=== PATIENT | female | born 1955 | race Caucasian/White ===

== ENCOUNTER 2019-06-20 09:55 | Day surgery (SDC) | payer SELFPAY ==
[2019-06-20] VITALS (10 sets, daily range): BP systolic 113–163; BP diastolic 60–79
[~2019-06-20] VITALS: Ht 162.5 cm; Wt 93.0 kg
[2019-06-20] MEDS ORDERED: CATHETER FLUSH 10 ML SYR IV PRN (10:30)
--- OUTSIDE RECORDS SUMMARY | 2019-06-20 10:32 | XMS REPORT ---
Author Author Shanice HENRIQUEZ Organization [facility] Address [address] [place] [address] Care Team Providers Care Sports Recruiter Name Role Phone JONNATHAN HENRIQUEZ Unavailable PROBLEMS Type Condition ICD9-CM Code [id number] Code Onset Dates Condition S tatus SNOMED Code Problem Hypertension I10 Active 1216967 3 Problem Family history of diabetes mellitus Z83.3 Active 997398376 Problem History of frequent urinary tract infections Z87.4 40 Active 0613589424881 Problem Anxiety F41.9 Active 95160726 Problem Asthma J45.909 Active 619113088 Problem Urge incontinence N39.41 Active 87 886682 Problem Herpes simplex type II infection B00.9 Active 828025103 Problem Hepatitis C B19.20 Active 67419616 Problem Depression F32.9 Active 70031475 Problem Overactive bladder N32.81 Active 2 91799289 Problem Other urinary incontinence N39.498 Act bethany [id number] ALLERGIES No Information ENCOUNTERS Encounter Location Date Diagnosis [facility] [address] [id number] [address] [place] [id number] 16 May, 2018 Prediabetes R73.03 [facility] [id number] [address] [place] [phone] 10 May, 2018 Hypertension I10 ; Dysuria R 30.0 ; Seborrheic keratosis L82.1 ; Anxiety F41.9 and Urge incontinence N39.41 [facility] [address] [facility] [id number] [address] [place] [phone] 07 Jan, 2018 Acute sinusitis J01.90 [facility] [address] [facility] [id number] [address] [place] [phone] 17 Oct, 2017 [facility] [address] [id number] [address] [place] [phone] Sep, Acute non-recurrent maxillar y sinusitis J01.00 ; Hypertension I10 ; Depression F32.9 ; Asthma J45.909 and Lymphadenopathy R59.1 [place] [address] [facility] [id number] [address] [place] [phone] Feb, Dysuria R30.0 ; Urinary trac t infection without hematuria, site unspecified N39.0 ; Asthma J45.909 and Bronchitis J40 [place] [address] [facility] [id number] [address] [place] [phone] Sep, [place] [address] [id number] [place] [phone] Aug, Wheezing R06.2 ; Hoarse voic e quality R49.0 ; Cough R05 and Encounter for screening mammogram for breast cancer Z12.31 [facility] [address] [id number] [address] [place] [phone] Jul, Pharyngitis due to other org anism J02.8 [place] [address] [id number] [place] [phone] Apr, Sore throat J02.9 ; Bronchit is J40 ; Herpes simplex type II infection B00.9 and Eustachian tube dysfunction, bilateral H69.83 [place] [address] [address] [id number] [place] [phone] Feb, Acute non-recurrent maxillar y sinusitis J01.00 [place] [address] [id number] [place] [phone] Feb, Asthma J45.909 [place] [address] [place] [address] [id number] [place] [address] Jan, [place] [address] [address] Jan, Acute non-recurrent maxillar y sinusitis J01.00 ; Hypertension I10 and History of hepatitis C virus infection Z86.19 [place] [address] [place] [id number] [address] [place] [address] Jan, Hep C w/ coma, chronic B18.2 [place] [address] [address] Jan, [place] [address] [address] Oct, Osteoarthritis of both knees , unspecified osteoarthritis type M17.0 [place] [address] [address] Sep, Pain in right knee M25.561 ; Pain in left knee M25.562 ; Other chronic pain G89.29 ; Pain in thoracic spine M54.6 ; Acute gastritis without hemorrhage, unspecified gastritis type K29.00 ; Urinary tract infection, site not specified N39.0 and Hematuria, unspecified R31.[address] [address] Jul, Hypertension I10 ; Bronchiti s J40 ; Unspecified viral hepatitis C without hepatic coma B19.20 ; Asthma J45.909 and Hep C w/ coma, chronic B18.2 [place] [address] [address] June, [place] [address] [address] May, Bronchitis J40 ; Asthma J45. 909 and Unspecified viral hepatitis C without hepatic coma B19.20 [place] [address] [address] May, Unspecified viral hepatitis C without hepatic coma B19.20 [place] [address] [address] May, Hypertension I10 ; Hepatitis C B19.20 and Encounter for screening mammogram for breast cancer Z12.[address] [address] Apr, [facility] [address] [id number] [address] [place] [phone] Apr, Unspecified viral hepatitis C without hepatic coma B19.20 and Hep C w/ coma, chronic B18.2 [facility] [address] [id number] [address] [place] [phone] Mar, [facility] [address] [id number] [address] [place] [phone] Mar, Hypertension I10 and Unspeci fied viral hepatitis C without hepatic coma B19.20 [facility] [address] [id number] [address] [place] [phone] Feb, [facility] [address] [facility] [id number] [address] [place] [address] Feb, Hypertension I10 [facility] [address] [facility] [id number] [address] [place] [id number] Feb, Hypertension I10 ; Hepatitis C B19.20 and History of frequent urinary tract infections Z87.440 [facility] [address] [facility] [id number] [address] [place] [phone] Feb, Unspecified viral hepatitis C without hepatic coma B19.20 and Hep C w/ coma, chronic B18.2 [facility] [address] [id number] [address] [place] [phone] Feb, Hep C w/ coma, chronic B18.2 [facility] [address] [id number] [address] [place] [phone] Jan, [facility] [address] [id number] [address] [place] [phone] Jan, Unspecified viral hepatitis C without hepatic coma B19.20 and Hep C w/ coma, chronic B18.2 [facility] [address] [facility] [id number] [address] [place] [phone] Jan, [facility] [address] [facility] [id number] [address] [place] [phone] Jan, Sore throat J02.9 and Dysuri a R30.0 [facility] [address] [facility] [id number] [address] [place] [phone] 30 Nov, 2014 [facility] [address] [facility] [id number] [address] [place] [phone] Nov, [facility] [address] [facility] [id number] [address] [place] [phone] Nov, [facility] [address] [facility] [id number] [address] [place] [address] Nov, Hepatitis C 070.70 [facility] [address] [facility] [id number] [address] [place] [phone] Nov, [facility] [address] [facility] [id number] [address] [place] [phone] Oct, Hepatitis C 070.70 [facility] [address] [facility] [id number] [address] [place] [phone] 14 Oct, 2014 Upper respiratory infection 465.9 [facility] [id number] [place] [address] Jul, [facility] [address] [facility] [id number] [address] [place] [phone] June, Hepatitis C 070.70 [facility] [address] [facility] [id number] [address] [place] [phone] 14 May, 2014 [facility] [address] [facility] [id number] [address] [place] [phone] 13 May, 2014 [facility] [address] [facility] [id number] [address] [place] [phone] 16 Apr, 2014 [facility] [address] [facility] [id number] [address] [place] [phone] Apr, [facility] [address] [facility] [id number] [address] [place] [phone] Mar, [facility] [address] [facility] [id number] [address] [place] [phone] Mar, [facility] [address] [facility] [id number] [address] [place] [phone] Mar, [facility] [address] [facility] [id number] [address] [place] [phone] Feb, [facility] [address] [facility] [id number] [address] [place] [phone] Feb, [facility] [address] [facility] [id number] [address] [place] [phone] Feb, [facility] [address] [facility] [id number] [address] [place] [phone] Feb, IMMUNIZATIONS No Known Immunizations SOCIAL HISTORY Never Assessed REASON FOR VISIT PLAN OF CARE VITAL SIGNS Height 64 in 2014-04-09 Weight 223.31 lbs 2014-04-09 Temperature 98.2 degrees Fahrenheit 2014-04-09 Heart Rate 72 bpm 2014-04-09 Respiratory Rate 18 2014-04-09 Blood pressure systolic 132 mmHg 2014-04-09 Blood pressure diastolic 70 mmHg 2014-04-09 MEDICATIONS Unknown Medications RESULTS No Results PROCEDURES Procedure Date Ordered Result Body Site COMPLETE CBC W/AUTO DIFF WBC Apr 09, 2014 ASSAY THYROID STIM HORMONE Apr 09, 2014 GLYCATED HEMOGLOBIN TEST Apr 09, 2014 ACUTE HEPATITIS PANEL Apr 09, 2014 LIPID PANEL Apr 09, 2014 COMPREHEN METABOLIC PANEL Apr 09, 2014 VENIPUNCT, ROUTINE* Apr 09, 2014 INSTRUCTIONS MEDICATIONS ADMINISTERED No Known Medications MEDICAL (GENERAL) HISTORY Type Description Date Medical History Chronic Hep C Stage II Liver disease Genotype [address] Liver bx 2004 Relapsed after 18 mo of Interferon tx in May 2007 Repeat tx for 46 weeks completed August 2011.. Genotype 1a [facility] 05/2014 Medical History GERD Medical History Depression Medical History Asthma Medical History Rosacea Medical History Hypertension Surgical History cholecystectomy Surgical History section x 2 Surgical History partial hysterectomy Surgical History tonsillectomy and adenoidectomy Surgical History abcess in breast Surgical History carpal tunnel release in both wrists Hospitalization History surgeries
--- OUTSIDE RECORDS SUMMARY | 2019-06-20 10:32 | XMS REPORT ---
Author Author Shanice HENRIQUEZ Organization [facility] Address [address] [place] [address] Care Team Providers Care Dynamite Shooter Name Role Phone JONNATHAN HENRIQUEZ Unavailable PROBLEMS Type Condition ICD9-CM Code QXU07-OE Code Onset Dates Condition S tatus SNOMED Code Problem Hypertension I10 Active 7916265 3 Problem Family history of diabetes mellitus Z83.3 Active 693089747 Problem History of frequent urinary tract infections Z87.4 40 Active 7256881709362 Problem Anxiety F41.9 Active 49870301 Problem Asthma J45.909 Active 057211299 Problem Urge incontinence N39.41 Active 87 461532 Problem Herpes simplex type II infection B00.9 Active 267742848 Problem Hepatitis C B19.20 Active 72508114 Problem Depression F32.9 Active 37368566 Problem Overactive bladder N32.81 Active 2 06313237 Problem Other urinary incontinence N39.498 Act bethany [id number] ALLERGIES No Information ENCOUNTERS Encounter Location Date Diagnosis [facility] [id number] [place] [phone] 16 May, 2018 Prediabetes R73.03 [facility] [id number] [place] [phone] 10 May, 2018 Hypertension I10 ; Dysuria R 30.0 ; Seborrheic keratosis L82.1 ; Anxiety F41.9 and Urge incontinence N39.41 [facility] [address] [facility] [id number] [address] [place] [id number] 07 Jan, 2018 Acute sinusitis J01.90 [facility] [address] [facility] [id number] [address] [place] [phone] 17 Oct, 2017 [facility] [id number] [place] [address] Sep, Acute non-recurrent maxillar y sinusitis J01.00 ; Hypertension I10 ; Depression F32.9 ; Asthma J45.909 and Lymphadenopathy R59.1 [place] [address] [facility] [id number] [address] [place] [address] Feb, Dysuria R30.0 ; Urinary trac t infection without hematuria, site unspecified N39.0 ; Asthma J45.909 and Bronchitis J40 [place] [address] [facility] [id number] [address] [place] [address] Sep, [place] [address] [id number] [place] [address] Aug, Wheezing R06.2 ; Hoarse voic e quality R49.0 ; Cough R05 and Encounter for screening mammogram for breast cancer Z12.31 [facility] [id number] [place] [phone] Jul, Pharyngitis due to other org anism J02.8 [place] [address] [place] [id number] [place] [phone] Apr, Sore throat J02.9 ; Bronchit is J40 ; Herpes simplex type II infection B00.9 and Eustachian tube dysfunction, bilateral H69.83 [place] [address] [id number] [place] [address] Feb, Acute non-recurrent maxillar y sinusitis J01.00 [place] [address] [id number] [place] [address] Feb, Asthma J45.909 [place] [address] [place] [id number] [place] [address] Jan, [place] [address] [address] Jan, Acute non-recurrent maxillar y sinusitis J01.00 ; Hypertension I10 and History of hepatitis C virus infection Z86.19 [place] [address] [place] [id number] [place] [address] Jan, Hep C w/ coma, chronic B18.2 [place] [address] [address] Jan, [place] [address] [address] Oct, Osteoarthritis of both knees , unspecified osteoarthritis type M17.0 [place] [address] [address] Sep, Pain in right knee M25.561 ; Pain in left knee M25.562 ; Other chronic pain G89.29 ; Pain in thoracic spine M54.6 ; Acute gastritis without hemorrhage, unspecified gastritis type K29.00 ; Urinary tract infection, site not specified N39.0 and Hematuria, unspecified R31.[address] [address] Jul, Hypertension I10 ; Bronchiti s J40 ; Unspecified viral hepatitis C without hepatic coma B19.20 ; Asthma J45.909 and Hep C w/ coma, chronic B18.2 [place] [address] [address] June, [place] [address] [address] May, Bronchitis J40 ; Asthma J45. 909 and Unspecified viral hepatitis C without hepatic coma B19.20 [place] [address] [address] May, Unspecified viral hepatitis C without hepatic coma B19.20 [place] [address] [address] May, Hypertension I10 ; Hepatitis C B19.20 and Encounter for screening mammogram for breast cancer Z12.[address] [address] Apr, [facility] [address] [id number] [address] [place] [address] Apr, Unspecified viral hepatitis C without hepatic coma B19.20 and Hep C w/ coma, chronic B18.2 [facility] [address] [id number] [address] [place] [address] Mar, [facility] [address] [id number] [address] [place] [address] Mar, Hypertension I10 and Unspeci fied viral hepatitis C without hepatic coma B19.20 [facility] [address] [id number] [address] [place] [address] Feb, [facility] [address] [facility] [id number] [address] [place] [address] Feb, Hypertension I10 [facility] [address] [facility] [id number] [address] [place] [address] Feb, Hypertension I10 ; Hepatitis C B19.20 and History of frequent urinary tract infections Z87.440 [facility] [address] [facility] [id number] [address] [place] [address] Feb, Unspecified viral hepatitis C without hepatic coma B19.20 and Hep C w/ coma, chronic B18.2 [facility] [address] [id number] [address] [place] [address] Feb, Hep C w/ coma, chronic B18.2 [facility] [address] [id number] [address] [place] [phone] Jan, [facility] [address] [id number] [address] [place] [address] Jan, Unspecified viral hepatitis C without hepatic coma B19.20 and Hep C w/ coma, chronic B18.2 [facility] [address] [facility] [id number] [address] [place] [address] Jan, [facility] [address] [facility] [id number] [address] [place] [address] Jan, Sore throat J02.9 and Dysuri a R30.0 [facility] [address] [facility] [id number] [address] [place] [address] 30 Nov, 2014 [facility] [address] [facility] [id number] [address] [place] [phone] Nov, [facility] [address] [facility] [id number] [address] [place] [address] Nov, [facility] [address] [facility] [id number] [address] [place] [address] Nov, Hepatitis C 070.70 [facility] [address] [facility] [id number] [address] [place] [address] Nov, [facility] [address] [facility] [id number] [address] [place] [address] Oct, Hepatitis C 070.70 [facility] [address] [facility] [id number] [address] [place] [address] 14 Oct, 2014 Upper respiratory infection 465.9 [facility] [address] [id number] [place] [address] Jul, [facility] [address] [facility] [id number] [address] [place] [address] June, Hepatitis C 070.70 [facility] [address] [facility] [id number] [address] [place] [address] 14 May, 2014 [facility] [address] [facility] [id number] [address] [place] [address] 13 May, 2014 [facility] [address] [facility] [id number] [address] [place] [address] 16 Apr, 2014 [facility] [address] [facility] [id number] [address] [place] [address] Apr, [facility] [address] [facility] [id number] [address] [place] [address] Mar, [facility] [address] [facility] [id number] [address] [place] [phone] Mar, [facility] [address] [facility] [id number] [address] [place] [phone] Mar, [facility] [address] [facility] [id number] [address] [place] [phone] Feb, [facility] [address] [facility] [id number] [address] [place] [phone] Feb, [facility] [address] [facility] [id number] [address] [place] [phone] Feb, [facility] [address] [facility] [id number] [address] [place] [address] Feb, IMMUNIZATIONS No Known Immunizations SOCIAL HISTORY Never Assessed REASON FOR VISIT PLAN OF CARE VITAL SIGNS MEDICATIONS Unknown Medications RESULTS No Results PROCEDURES No Known procedures INSTRUCTIONS MEDICATIONS ADMINISTERED No Known Medications MEDICAL (GENERAL) HISTORY Type Description Date Medical History Chronic Hep C Stage II Liver disease Genotype [address] Liver bx 2004 Relapsed after 18 mo of Interferon tx in May 2007 Repeat tx for 46 weeks completed August 2011.. Genotype 1a [facility] 05/2014 Medical History GERD Medical History Depression Medical History Asthma Medical History Rosacea Medical History Hypertension Surgical History cholecystectomy Surgical History section x 2 Surgical History partial hysterectomy Surgical History tonsillectomy and adenoidectomy Surgical History abcess in breast Surgical History carpal tunnel release in both wrists Hospitalization History surgeries
--- OUTSIDE RECORDS SUMMARY | 2019-06-20 10:32 | XMS REPORT ---
Author Author Shanice BURRELL Organization [facility] Address [address] [place] [address] Care Team Providers Care Drill Press Set Up Operator Radial Name Role Phone JANIA BURRELL Unavailable PROBLEMS Type Condition ICD9-CM Code [id number] Code Onset Dates Condition S tatus SNOMED Code Problem Hypertension I10 Active 1421669 3 Problem Family history of diabetes mellitus Z83.3 Active 164334854 Problem History of frequent urinary tract infections Z87.4 40 Active 2180392578055 Problem Anxiety F41.9 Active 06899161 Problem Asthma J45.909 Active 972529580 Problem Urge incontinence N39.41 Active 87 672186 Problem Herpes simplex type II infection B00.9 Active 154139771 Problem Hepatitis C B19.20 Active 30680426 Problem Depression F32.9 Active 38785746 Problem Overactive bladder N32.81 Active 2 99085642 Problem Other urinary incontinence N39.498 Act bethany [id number] ALLERGIES No Information ENCOUNTERS Encounter Location Date Diagnosis [facility] [address] [facility] [id number] [address] [place] [id number] 16 May, 2018 Prediabetes R73.03 [facility] [address] [facility] [id number] [address] [place] [phone] May, Hypertension I10 ; Dysuria R 30.0 ; Seborrheic keratosis L82.1 ; Anxiety F41.9 and Urge incontinence N39.41 [facility] [address] [facility] [id number] [address] [place] [id number] Jan, Acute sinusitis J01.90 [facility] [address] [facility] [id number] [address] [place] [phone] Oct, [facility] [address] [facility] [id number] [address] [place] [id number] Sep, Acute non-recurrent maxillar y sinusitis J01.00 ; Hypertension I10 ; Depression F32.9 ; Asthma J45.909 and Lymphadenopathy R59.1 [place] [address] [place] [phone] Feb, Dysuria R30.0 ; Urinary trac t infection without hematuria, site unspecified N39.0 ; Asthma J45.909 and Bronchitis J40 [place] [address] [address] Sep, [place] [address] [address] Aug, Wheezing R06.2 ; Hoarse voic e quality R49.0 ; Cough R05 and Encounter for screening mammogram for breast cancer Z12.31 [facility] [address] [place] [id number] [address] [place] [id number] Jul, Pharyngitis due to other org anism J02.8 [place] [address] [place] [id number] [address] [place] [phone] Apr, Sore throat J02.9 ; Bronchit is J40 ; Herpes simplex type II infection B00.9 and Eustachian tube dysfunction, bilateral H69.83 [place] [address] [address] Feb, Acute non-recurrent maxillar y sinusitis J01.00 [place] [address] [place] [address] Feb, Asthma J45.909 [place] [address] [address] Jan, [place] [address] [address] Jan, Acute non-recurrent maxillar y sinusitis J01.00 ; Hypertension I10 and History of hepatitis C virus infection Z86.19 [place] [address] [address] Jan, Hep C w/ coma, chronic B18.2 [place] [address] [address] Jan, [place] [address] [address] Oct, Osteoarthritis of both knees , unspecified osteoarthritis type M17.0 [place] [address] [address] Sep, Pain in right knee M25.561 ; Pain in left knee M25.562 ; Other chronic pain G89.29 ; Pain in thoracic spine M54.6 ; Acute gastritis without hemorrhage, unspecified gastritis type K29.00 ; Urinary tract infection, site not specified N39.0 and Hematuria, unspecified R31.[address] [address] Jul, Hypertension I10 ; Bronchiti s J40 ; Unspecified viral hepatitis C without hepatic coma B19.20 ; Asthma J45.909 and Hep C w/ coma, chronic B18.[address] [address] June, [address] [address] May, Bronchitis J40 ; Asthma J45. 909 and Unspecified viral hepatitis C without hepatic coma B19.20 [place] [address] [address] May, Unspecified viral hepatitis C without hepatic coma B19.[address] [address] May, Hypertension I10 ; Hepatitis C B19.20 and Encounter for screening mammogram for breast cancer Z12.[address] [address] Apr, [facility] [address] [id number] [address] [place] [id number] Apr, Unspecified viral hepatitis C without hepatic coma B19.20 and Hep C w/ coma, chronic B18.2 [facility] [address] [id number] [address] [place] [id number] Mar, [facility] [address] [id number] [address] [place] [phone] Mar, Hypertension I10 and Unspeci fied viral hepatitis C without hepatic coma B19.20 [facility] [address] [id number] [address] [place] [phone] Feb, [facility] [address] [id number] [address] [place] [id number] Feb, Hypertension I10 [facility] [address] [facility] [id number] [address] [place] [id number] Feb, Hypertension I10 ; Hepatitis C B19.20 and History of frequent urinary tract infections Z87.440 [facility] [address] [id number] [address] [place] [id number] Feb, Unspecified viral hepatitis C without hepatic coma B19.20 and Hep C w/ coma, chronic B18.2 [facility] [address] [facility] [id number] [address] [place] [phone] Feb, Hep C w/ coma, chronic B18.2 [facility] [address] [id number] [address] [place] [phone] Jan, [facility] [address] [id number] [address] [place] [phone] Jan, Unspecified viral hepatitis C without hepatic coma B19.20 and Hep C w/ coma, chronic B18.2 [facility] [address] [id number] [address] [place] [phone] Jan, [facility] [address] [facility] [id number] [address] [place] [id number] Jan, Sore throat J02.9 and Dysuri a R30.0 [facility] [address] [facility] [id number] [address] [place] [phone] Nov, [facility] [address] [facility] [id number] [address] [place] [id number] Nov, [facility] [address] [place] [id number] [address] [place] [phone] Nov, [facility] [address] [facility] [id number] [address] [place] [id number] Nov, Hepatitis C 070.70 [facility] [address] [facility] [id number] [address] [place] [id number] Nov, [facility] [address] [place] [id number] [address] [place] [id number] Oct, Hepatitis C 070.70 [facility] [address] [facility] [id number] [address] [place] [phone] Oct, Upper respiratory infection 465.9 [facility] [address] [place] [id number] [address] [place] [id number] Jul, [facility] [address] [place] [id number] [address] [place] [phone] June, Hepatitis C 070.70 [facility] [address] [facility] [id number] [address] [place] [phone] May, [facility] [address] [facility] [id number] [address] [place] [phone] May, [facility] [address] [place] [id number] [address] [place] [phone] Apr, [facility] [address] [facility] [id number] [address] [place] [phone] Apr, [facility] [address] [place] [id number] [address] [place] [phone] Mar, [facility] [address] [facility] [id number] [address] [place] [phone] Mar, [facility] [address] [facility] [id number] [address] [place] [phone] Mar, [facility] [address] [facility] [id number] [address] [place] [phone] Feb, [facility] [address] [facility] [id number] [address] [place] [phone] Feb, [facility] [address] [facility] [id number] [address] [place] [id number] Feb, [facility] [address] [facility] [id number] [address] [place] [phone] Feb, IMMUNIZATIONS No Known Immunizations SOCIAL HISTORY [...] 46 weeks completed August 2011.. Genotype 1a [place] [facility] 05/2014 Medical History GERD Medical History Depression Medical History Asthma Medical History Rosacea Medical History Hypertension Surgical History cholecystectomy Surgical History section x 2 Surgical History partial hysterectomy Surgical History tonsillectomy and adenoidectomy Surgical History abcess in breast Surgical History carpal tunnel release in both wrists Hospitalization History surgeries
--- OUTSIDE RECORDS SUMMARY | 2019-06-20 10:32 | XMS REPORT ---
Author Author Shanice HENRIQUEZ Organization [facility] Address [address] [place] [address] Care Team Providers Care Aircraft Servicer Name Role Phone JONNATHAN HENRIQUEZ Unavailable PROBLEMS Type Condition ICD9-CM Code QXQ90-NT Code Onset Dates Condition S tatus SNOMED Code Problem Hypertension I10 Active 2698478 3 Problem Family history of diabetes mellitus Z83.3 Active 913242284 Problem History of frequent urinary tract infections Z87.4 40 Active 7662137000636 Problem Anxiety F41.9 Active 61233118 Problem Asthma J45.909 Active 054195153 Problem Urge incontinence N39.41 Active 87 568589 Problem Herpes simplex type II infection B00.9 Active 961186631 Problem Hepatitis C B19.20 Active 48198563 Problem Depression F32.9 Active 09451139 Problem Overactive bladder N32.81 Active 2 88370074 Problem Other urinary incontinence N39.498 Act bethany [id number] ALLERGIES No Information ENCOUNTERS Encounter Location Date Diagnosis [facility] [address] [place] [id number] [address] [place] [id number] 16 May, 2018 Prediabetes R73.03 [facility] [address] [place] [id number] [address] [place] [phone] 10 May, 2018 Hypertension I10 ; Dysuria R 30.0 ; Seborrheic keratosis L82.1 ; Anxiety F41.9 and Urge incontinence N39.41 [facility] [address] [facility] [id number] [address] [place] [id number] 07 Jan, 2018 Acute sinusitis J01.90 [facility] [address] [facility] [id number] [address] [place] [id number] 17 Oct, 2017 [facility] [address] [place] [id number] [address] [place] [id number] Sep, Acute non-recurrent maxillar y sinusitis J01.00 ; Hypertension I10 ; Depression F32.9 ; Asthma J45.909 and Lymphadenopathy R59.1 [place] [address] [facility] [id number] [address] [place] [phone] Feb, Dysuria R30.0 ; Urinary trac t infection without hematuria, site unspecified N39.0 ; Asthma J45.909 and Bronchitis J40 [place] [address] [facility] [id number] [address] [place] [phone] Sep, [place] [address] [place] [id number] [place] [id number] Aug, Wheezing R06.2 ; Hoarse voic e quality R49.0 ; Cough R05 and Encounter for screening mammogram for breast cancer Z12.31 [facility] [address] [place] [id number] [address] [place] [id number] Jul, Pharyngitis due to other org anism J02.8 [place] [address] [place] [id number] [address] [place] [id number] Apr, Sore throat J02.9 ; Bronchit is J40 ; Herpes simplex type II infection B00.9 and Eustachian tube dysfunction, bilateral H69.83 [place] [address] [place] [id number] [address] [place] [id number] Feb, Acute non-recurrent maxillar y sinusitis J01.00 [place] [address] [place] [id number] [address] [place] [phone] Feb, Asthma J45.909 [place] [address] [place] [id number] [address] [place] [id number] Jan, [place] [address] [address] Jan, Acute non-recurrent maxillar y sinusitis J01.00 ; Hypertension I10 and History of hepatitis C virus infection Z86.19 [place] [address] [place] [id number] [address] [place] [phone] Jan, Hep C w/ coma, chronic B18.2 [place] [address] [address] Jan, [place] [address] [address] Oct, Osteoarthritis of both knees , unspecified osteoarthritis type M17.0 [place] [address] [address] Sep, Pain in right knee M25.561 ; Pain in left knee M25.562 ; Other chronic pain G89.29 ; Pain in thoracic spine M54.6 ; Acute gastritis without hemorrhage, unspecified gastritis type K29.00 ; Urinary tract infection, site not specified N39.0 and Hematuria, unspecified R31.[address] [address] Jul, Hypertension I10 ; Bronchiti s J40 ; Unspecified viral hepatitis C without hepatic coma B19.20 ; Asthma J45.909 and Hep C w/ coma, chronic B18.2 [place] [address] [address] June, [place] [address] [address] May, Bronchitis J40 ; Asthma J45. 909 and Unspecified viral hepatitis C without hepatic coma B19.20 [place] [address] [address] May, Unspecified viral hepatitis C without hepatic coma B19.20 [place] [address] [address] May, Hypertension I10 ; Hepatitis C B19.20 and Encounter for screening mammogram for breast cancer Z12.[address] [address] Apr, [facility] [address] [id number] [address] [place] [id number] Apr, Unspecified viral hepatitis C without hepatic coma B19.20 and Hep C w/ coma, chronic B18.2 [facility] [address] [id number] [address] [place] [phone] Mar, [facility] [address] [id number] [address] [place] [id number] Mar, Hypertension I10 and Unspeci fied viral hepatitis C without hepatic coma B19.20 [facility] [address] [id number] [address] [place] [id number] Feb, [facility] [address] [facility] [id number] [address] [place] [phone] Feb, Hypertension I10 [facility] [address] [facility] [id number] [address] [place] [id number] Feb, Hypertension I10 ; Hepatitis C B19.20 and History of frequent urinary tract infections Z87.440 [facility] [address] [facility] [id number] [address] [place] [phone] Feb, Unspecified viral hepatitis C without hepatic coma B19.20 and Hep C w/ coma, chronic B18.2 [facility] [address] [id number] [address] [place] [id number] Feb, Hep C w/ coma, chronic B18.2 [facility] [address] [id number] [address] [place] [id number] Jan, [facility] [address] [id number] [address] [place] [id number] Jan, Unspecified viral hepatitis C without hepatic coma B19.20 and Hep C w/ coma, chronic B18.2 [facility] [address] [facility] [id number] [address] [place] [id number] Jan, [facility] [address] [facility] [id number] [address] [place] [id number] Jan, Sore throat J02.9 and Dysuri a R30.0 [facility] [address] [facility] [id number] [address] [place] [phone] 30 Nov, 2014 [facility] [address] [facility] [id number] [address] [place] [phone] Nov, [facility] [address] [facility] [id number] [address] [place] [phone] Nov, [facility] [address] [facility] [id number] [address] [place] [id number] Nov, Hepatitis C 070.70 [facility] [address] [facility] [id number] [address] [place] [id number] Nov, [facility] [address] [facility] [id number] [address] [place] [phone] Oct, Hepatitis C 070.70 [facility] [address] [facility] [id number] [address] [place] [phone] 14 Oct, 2014 Upper respiratory infection 465.9 [facility] [address] [place] [id number] [place] [phone] Jul, [facility] [address] [facility] [id number] [address] [place] [id number] June, Hepatitis C 070.70 [facility] [address] [facility] [id number] [address] [place] [id number] 14 May, 2014 [facility] [address] [facility] [id number] [address] [place] [id number] 13 May, 2014 [facility] [address] [facility] [id number] [address] [place] [id number] 16 Apr, 2014 [facility] [address] [facility] [id number] [address] [place] [phone] Apr, [facility] [address] [facility] [id number] [address] [place] [phone] Mar, [facility] [address] [facility] [id number] [address] [place] [phone] Mar, [facility] [address] [facility] [id number] [address] [place] [phone] Mar, [facility] [address] [facility] [id number] [address] [place] [phone] Feb, [facility] [address] [facility] [id number] [address] [place] [id number] Feb, [facility] [address] [facility] [id number] [address] [place] [phone] Feb, [facility] [address] [facility] [id number] [address] [place] [phone] Feb, IMMUNIZATIONS No Known Immunizations SOCIAL HISTORY Never Assessed REASON FOR VISIT PLAN OF CARE VITAL SIGNS Height 64 in 2014-03-13 Weight 222 lbs 2014-03-13 Temperature 97.7 degrees Fahrenheit 2014-03-13 Heart Rate 60 bpm 2014-03-13 Respiratory Rate 18 2014-03-13 Blood pressure systolic 132 mmHg 2014-03-13 Blood pressure diastolic 92 mmHg 2014-03-13 MEDICATIONS Unknown Medications RESULTS No Results PROCEDURES Procedure Date Ordered Result Body Site PSYCH DIAGNOSTIC EVALUATION Mar 13, 2014 INSTRUCTIONS MEDICATIONS ADMINISTERED No Known Medications MEDICAL (GENERAL) HISTORY Type Description Date Medical History Chronic Hep C Stage II Liver disease Genotype [address] Liver bx 2004 Relapsed after 18 mo of Interferon tx in May 2007 Repeat tx for 46 weeks completed August 2011.. Genotype 1a [place] [facility] 05/2014 Medical History GERD Medical History Depression Medical History Asthma Medical History Rosacea Medical History Hypertension Surgical History cholecystectomy Surgical History section x 2 Surgical History partial hysterectomy Surgical History tonsillectomy and adenoidectomy Surgical History abcess in breast Surgical History carpal tunnel release in both wrists Hospitalization History surgeries
--- OUTSIDE RECORDS SUMMARY | 2019-06-20 10:33 | XMS REPORT ---
Author Author Shanice HENRIQUEZ [facility] Address [address] [place] [address] Care Team Providers Care Television Repairman Name Role Phone JONNATHAN HENRIQUEZ Unavailable PROBLEMS Type Condition ICD9-CM Code XCJ71-CL Code Onset Dates Condition S tatus SNOMED Code Problem History of frequent urinary tract infections Z87.4 40 Active 9349912609229 Problem Herpes simplex type II infection B00.9 Active 346107269 Problem Depression F32.9 Active 40752441 Problem Family history of diabetes mellitus Z83.3 Active 162736454 Problem Hypertension I10 Active 7213946 3 Problem Hepatitis C B19.20 Active 58581721 Problem Asthma J45.909 Active 875084793 Problem Overactive bladder N32.81 Active 2 62016464 ALLERGIES Unknown Allergies SOCIAL HISTORY No smoking Hx information available PLAN OF CARE VITAL SIGNS MEDICATIONS Medication Instructions Dosage Frequency Start Date End Date Duration S tatus Symbicort 80-4.5 MCG/ACT Inhalation Twice a day 2 puffs 12h 30 days Active RESULTS No Results PROCEDURES No Known procedures IMMUNIZATIONS No Known Immunizations
--- OUTSIDE RECORDS SUMMARY | 2019-06-20 10:33 | XMS REPORT ---
Author Author Shanice HENRIQUEZ Organization [facility] Address [address] [place] [address] Care Team Providers Care Bicycle Rental Clerk Name Role Phone JONNATHAN HENRIQUEZ Unavailable PROBLEMS Type Condition ICD9-CM Code [id number] Code Onset Dates Condition S tatus SNOMED Code Problem History of frequent urinary tract infections Z87.4 40 Active 5701275242232 Problem Herpes simplex type II infection B00.9 Active 674825420 Problem Overactive bladder N32.81 Active 2 51855552 Problem Family history of diabetes mellitus Z83.3 Active 767415014 Problem Depression F32.9 Active 18477259 Problem Hepatitis C B19.20 Active 06994551 Problem Hypertension I10 Active 0633872 3 Problem Asthma J45.909 Active 436887007 ALLERGIES No Information ENCOUNTERS Encounter Location Date Diagnosis [place] [address] [place] [id number] [address] [place] [address] Oct, [place] [id number] [address] [place] [address] Sep, Acute non-recurrent maxillar y sinusitis J01.00 ; Hypertension I10 ; Depression F32.9 ; Asthma J45.909 and Lymphadenopathy R59.1 [place] [id number] [address] [place] [phone] Feb, Dysuria R30.0 ; Urinary trac t infection without hematuria, site unspecified N39.0 ; Asthma J45.909 and Bronchitis J40 [place] [address] [place] [id number] [address] [place] [phone] Sep, [place] [address] [place] [id number] [address] [place] [address] Aug, Wheezing R06.2 ; Hoarse voic e quality R49.0 ; Cough R05 and Encounter for screening mammogram for breast cancer Z12.31 [facility] [address] [address] Jul, Pharyngitis due to other org anism J02.8 [facility] [address] [address] Apr, Sore throat J02.9 ; Bronchit is J40 ; Herpes simplex type II infection B00.9 and Eustachian tube dysfunction, bilateral H69.83 [place] [address] [address] Feb, Acute non-recurrent maxillar y sinusitis J01.00 [place] [address] [address] 10 Feb, 2016 Asthma J45.909 [place] [address] [address] Jan, [place] [address] [address] Jan, Acute non-recurrent maxillar y sinusitis J01.00 ; Hypertension I10 and History of hepatitis C virus infection Z86.19 [place] [address] [address] Jan, Hep C w/ coma, chronic B18.2 [place] [address] [address] Jan, [place] [address] [address] Oct, Osteoarthritis of both knees , unspecified osteoarthritis type M17.0 [facility] [address] [place] [id number] [place] [address] Sep, Pain in right knee M25.561 ; Pain in left knee M25.562 ; Other chronic pain G89.29 ; Pain in thoracic spine M54.6 ; Acute gastritis without hemorrhage, unspecified gastritis type K29.00 ; Urinary tract infection, site not specified N39.0 and Hematuria, unspecified R31.9 [place] [address] [place] [id number] [place] [address] Jul, Hypertension I10 ; Bronchiti s J40 ; Unspecified viral hepatitis C without hepatic coma B19.20 ; Asthma J45.909 and Hep C w/ coma, chronic B18.2 [place] [address] [facility] [id number] [address] [place] [address] June, [place] [address] [facility] [id number] [address] [place] [address] May, Bronchitis J40 ; Asthma J45. 909 and Unspecified viral hepatitis C without hepatic coma B19.20 [place] [address] [place] [id number] [address] [place] [address] May, Unspecified viral hepatitis C without hepatic coma B19.20 [place] [address] [place] [id number] [address] [place] [address] May, Hypertension I10 ; Hepatitis C B19.20 and Encounter for screening mammogram for breast cancer Z12.31 [place] [address] [place] [id number] [address] [place] [address] Apr, [place] [address] [place] [id number] [address] [place] [address] Apr, Unspecified viral hepatitis C without hepatic coma B19.20 and Hep C w/ coma, chronic B18.2 [place] [address] [facility] [id number] [address] [place] [address] Mar, [place] [address] [place] [id number] [address] [place] [address] Mar, Hypertension I10 and Unspeci fied viral hepatitis C without hepatic coma B19.20 [place] [address] [facility] [id number] [address] [place] [address] Feb, [place] [address] [facility] [id number] [address] [place] [address] Feb, Hypertension I10 [facility] [address] [facility] [id number] [address] [place] [address] Feb, Hypertension I10 ; Hepatitis C B19.20 and History of frequent urinary tract infections Z87.440 [facility] [address] [facility] [id number] [address] [place] [address] Feb, Unspecified viral hepatitis C without hepatic coma B19.20 and Hep C w/ coma, chronic B18.2 [facility] [address] [facility] [id number] [address] [place] [address] Feb, Hep C w/ coma, chronic B18.2 [facility] [address] [facility] [id number] [address] [place] [address] Jan, [facility] [address] [place] [id number] [address] [place] [address] Jan, Unspecified viral hepatitis C without hepatic coma B19.20 and Hep C w/ coma, chronic B18.2 [facility] [address] [facility] [id number] [address] [place] [address] Jan, [facility] [address] [place] [id number] [address] [place] [address] Jan, Sore throat J02.9 and Dysuri a R30.0 [facility] [address] [facility] [id number] [address] [place] [address] Nov, [facility] [address] [facility] [id number] [address] [place] [address] Nov, [facility] [address] [place] [id number] [address] [place] [address] Nov, [facility] [address] [facility] [id number] [address] [place] [address] 08 Nov, 2014 Hepatitis C 070.70 [facility] [address] [place] [id number] [address] [place] [phone] Nov, [facility] [address] [id number] [address] [place] [phone] 16 Oct, 2014 Hepatitis C 070.70 [facility] [address] [id number] [address] [place] [id number] 14 Oct, 2014 Upper respiratory infection 465.9 [facility] [address] [id number] [address] [place] [address] Jul, [facility] [address] [id number] [address] [place] [phone] June, Hepatitis C 070.70 [facility] [address] [id number] [address] [place] [phone] May, [facility] [address] [id number] [address] [place] [phone] May, [facility] [address] [id number] [address] [place] [address] Apr, [facility] [address] [id number] [address] [place] [phone] Apr, [facility] [address] [id number] [address] [place] [address] Mar, [facility] [address] [id number] [address] [place] [address] Mar, [facility] [address] [id number] [address] [place] [phone] Mar, [facility] [address] [id number] [address] [place] [phone] Feb, [facility] [address] [id number] [address] [place] [address] Feb, [facility] [address] [id number] [address] [place] [phone] Feb, [facility] [address] [id number] [address] [place] [address], [place] [address] Feb, IMMUNIZATIONS No Known Immunizations SOCIAL HISTORY Never Assessed REASON FOR VISIT Medication refill request PLAN OF CARE VITAL SIGNS MEDICATIONS Medication Instructions Dosage Frequency Start Date End Date Duration S tatus Albuterol Sulfate 90 mcg/actuation inhal e 1 puff by Inhalation route as needed every 4-6 hours PRN SOB, wheezing Feb, Active Atenolol 100 MG TAKE ONE TABLET BY MOUTH ONCE DAILY 30 Active RESULTS No Results PROCEDURES No Known procedures INSTRUCTIONS MEDICATIONS ADMINISTERED No Known Medications MEDICAL (GENERAL) HISTORY Type Description Date Medical History Chronic Hep C Stage II Liver disease Genotype [address] Liver bx 2004 Relapsed after 18 mo of Interferon tx in May 2007 Repeat tx for 46 weeks completed August 2011.. Genotype 1a [place] [facility] 05/2014 Medical History GERD Medical History Depression Medical History Asthma Medical History Rosacea Medical History Hypertension Surgical History cholecystectomy Surgical History section x 2 Surgical History partial hysterectomy Surgical History tonsillectomy and adenoidectomy Surgical History abcess in breast Surgical History carpal tunnel release in both wrists Hospitalization History surgeries
--- OUTSIDE RECORDS SUMMARY | 2019-06-20 10:33 | XMS REPORT ---
Author Author Shanice JAUREGUI [facility] Address [address] [place] [address] Care Team Providers Care Operations Vocational Instructor Name Role Phone VANESSA JAUREGUI Unavailable PROBLEMS Type Condition ICD9-CM Code XNA44-DY Code Onset Dates Condition S tatus SNOMED Code Problem History of frequent urinary tract infections Z87.4 40 Active 7686199372771 Problem Herpes simplex type II infection B00.9 Active 886831981 Problem Overactive bladder N32.81 Active 2 33895116 Problem Family history of diabetes mellitus Z83.3 Active 926927766 Problem Depression F32.9 Active 81426870 Problem Hepatitis C B19.20 Active 07031005 Problem Hypertension I10 Active 3999269 3 Problem Asthma J45.909 Active 846680881 ALLERGIES Substance Reaction Event Type Date Status Cephalexin Unknown Drug Allergy Jan, Active Azithromycin Unknown Drug Allergy Jan, Active ENCOUNTERS Encounter Location Date Diagnosis [facility] [address] [address] Jan, Acute sinusitis J01.90 [place] [address] [address] Oct, [place] [address] [address] Sep, Acute non-recurrent maxillar y sinusitis J01.00 ; Hypertension I10 ; Depression F32.9 ; Asthma J45.909 and Lymphadenopathy R59.1 [place] [address] [address] Feb, Dysuria R30.0 ; Urinary trac t infection without hematuria, site unspecified N39.0 ; Asthma J45.909 and Bronchitis J40 [place] [address] [address] Sep, [facility] [address] [address] Aug, Wheezing R06.2 ; Hoarse voic e quality R49.0 ; Cough R05 and Encounter for screening mammogram for breast cancer Z12.31 [facility] [address] [address] Jul, Pharyngitis due to other org anism J02.8 [facility] [address] [address] Apr, Sore throat J02.9 ; Bronchit is J40 ; Herpes simplex type II infection B00.9 and Eustachian tube dysfunction, bilateral H69.83 [place] [address] [address] Feb, Acute non-recurrent maxillar y sinusitis J01.00 [place] [address] [address] Feb, Asthma J45.909 [place] [address] [address] Jan, [place] [address] [address] Jan, Acute non-recurrent maxillar y sinusitis J01.00 ; Hypertension I10 and History of hepatitis C virus infection Z86.19 [place] [address] [address] 09 Jan, 2016 Hep C w/ coma, chronic B18.2 [place] [address] [address] Jan, [place] [address] [address] 29 Oct, 2015 Osteoarthritis of both knees , unspecified osteoarthritis type M17.0 [place] [address] [place] [id number] [address] [place] [address] Sep, Pain in right knee M25.561 ; Pain in left knee M25.562 ; Other chronic pain G89.29 ; Pain in thoracic spine M54.6 ; Acute gastritis without hemorrhage, unspecified gastritis type K29.00 ; Urinary tract infection, site not specified N39.0 and Hematuria, unspecified R31.9 [place] [address] [place] [id number] [place] [address] Jul, Hypertension I10 ; Bronchiti s J40 ; Unspecified viral hepatitis C without hepatic coma B19.20 ; Asthma J45.909 and Hep C w/ coma, chronic B18.2 [place] [address] [place] [id number] [place] [address] June, [place] [address] [place] [id number] [address] [place] [address] May, Bronchitis J40 ; Asthma J45. 909 and Unspecified viral hepatitis C without hepatic coma B19.20 [place] [address] [facility] [id number] [address] [place] [address] May, Unspecified viral hepatitis C without hepatic coma B19.20 [place] [address] [place] [id number] [address] [place] [address] May, Hypertension I10 ; Hepatitis C B19.20 and Encounter for screening mammogram for breast cancer Z12.31 [place] [address] [facility] [id number] [address] [place] [address] Apr, [place] [address] [facility] [id number] [address] [place] [address] Apr, Unspecified viral hepatitis C without hepatic coma B19.20 and Hep C w/ coma, chronic B18.2 [place] [address] [facility] [id number] [address] [place] [address] Mar, [place] [address] [place] [id number] [address] [place] [address] Mar, Hypertension I10 and Unspeci fied viral hepatitis C without hepatic coma B19.20 [facility] [address] [facility] [id number] [address] [place] [address] Feb, [facility] [address] [facility] [id number] [address] [place] [address] Feb, Hypertension I10 [facility] [address] [place] [id number] [address] [place] [address] Feb, Hypertension I10 ; Hepatitis C B19.20 and History of frequent urinary tract infections Z87.440 [facility] [address] [facility] [id number] [address] [place] [address] Feb, Unspecified viral hepatitis C without hepatic coma B19.20 and Hep C w/ coma, chronic B18.2 [facility] [address] [place] [id number] [address] [place] [address] Feb, Hep C w/ coma, chronic B18.2 [facility] [address] [facility] [id number] [address] [place] [address] Jan, [facility] [address] [place] [id number] [address] [place] [address] Jan, Unspecified viral hepatitis C without hepatic coma B19.20 and Hep C w/ coma, chronic B18.2 [facility] [address] [place] [id number] [address] [place] [address] Jan, [facility] [address] [place] [id number] [address] [place] [address] Jan, Sore throat J02.9 and Dysuri a R30.0 [facility] [address] [facility] [id number] [address] [place] [address] Nov, [facility] [address] [facility] [id number] [address] [place] [phone] Nov, [facility] [address] [place] [id number] [address] [place] [address] Nov, [facility] [address] [id number] [address] [place] [address] Nov, Hepatitis C 070.70 [facility] [address] [id number] [address] [place] [phone] Nov, [facility] [address] [id number] [address] [place] [address] 16 Oct, 2014 Hepatitis C 070.70 [facility] [address] [id number] [address] [place] [address] 14 Oct, 2014 Upper respiratory infection 465.9 [facility] [address] [id number] [address] [place] [address] Jul, [facility] [address] [id number] [address] [place] [phone] June, Hepatitis C 070.70 [facility] [address] [id number] [address] [place] [phone] May, [facility] [address] [id number] [address] [place] [phone] May, [facility] [address] [id number] [address] [place] [phone] Apr, [facility] [address] [id number] [address] [place] [phone] Apr, [facility] [address] [id number] [address] [place] [address] Mar, [facility] [address] [id number] [address] [place] [phone] Mar, [facility] [address] [id number] [address] [place] [address] Mar, [facility] [address] [id number] [address] [place] [phone] Feb, [facility] [address] [id number] [address] [place] [address] Feb, [facility] [address] [facility] [id number] [address] [place] [phone] Feb, [facility] [address] [facility] [id number] [address] [place] [phone] Feb, IMMUNIZATIONS No Known Immunizations SOCIAL HISTORY Never Assessed REASON FOR VISIT congestion; sinus drainage/coughing/raspy voice/asthma for about 2 months; new s ore throat and left ear pain since 01/14/18 - [facility] [place] PLAN OF CARE Activity Details Follow Up if not improving with PCP or reg follow up Reason: VITAL SIGNS Height 64 in 2018-01-19 Weight 218.6 lbs 2018-01-19 Temperature 97.8 degrees Fahrenheit 2018-01-19 Heart Rate 60 bpm 2018-01-19 Respiratory Rate 18 2018-01-19 BMI 37.52 kg/m2 2018-01-19 Blood pressure systolic 120 mmHg 2018-01-19 Blood pressure diastolic 80 mmHg 2018-01-19 MEDICATIONS Medication Instructions Dosage Frequency Start Date End Date Duration S tatus Vitamin D3 1,000 unit take one tablet orally daily 2014 Active Mucinex 600 MG Orally every 12 hrs 1 tablet as needed 12h Active Flaxseed Oil 1,000 mg by Oral route 1 time per day 2014 Active Vitamin E 200 unit 1 capsule by Oral route 1 time per day Feb, Active Xanax 0.5 MG Orally Twice a day 1 tablet as needed 12h Feb, 28 days Active Biotin w/ Vitamins C & E 1250-7.5-7.5 MCG-MG-UNT as directed Active Cranberry 400 mg 1 capsule by Oral route 1 time per day Feb, Not-Taking Krill Oil 1000 MG Active Albuterol Sulfate 90 mcg/actuation inhal e 1 puff by Inhalation route as needed every 4-6 hours PRN SOB, wheezing Feb, Active Atenolol 100 MG TAKE ONE TABLET BY MOUTH ONCE DAILY 30 Active Omeprazole 20 MG Orally Once a day 1 capsule 24h Feb, Active Fluoxetine HCl 20 MG TAKE ONE CAPSULE BY MOUTH ONCE DAILY 30 Active PredniSONE 20 MG Orally Once a day 2 tablet 24h Jan, 5 days Active Glucosamine Sulfate 500 mg 1 capsule by Oral route 1 t luci per day Feb, Active Acyclovir 400 MG Orally 2 times a day 1 tablet 12h 3 0 Active Premarin 0.625 MG/GM Vaginal twice weekly as directed Feb, 16 Active Proventil HFA 108 (90 Base) MCG/ACT INHA LE ONE PUFF BY MOUTH EVERY 4 TO 6 HOURS NEEDED FOR SHORTNESS OF BREATH/WHEEZING 33 Active RESULTS No Results PROCEDURES No Known procedures INSTRUCTIONS MEDICATIONS ADMINISTERED No Known Medications MEDICAL (GENERAL) HISTORY Type Description Date Medical History Chronic Hep C Stage II Liver disease Genotype [address] Liver bx 2004 Relapsed after 18 mo of Interferon tx in May 2007 Repeat tx for 46 weeks completed August 2011.. Genotype 1a [facility] 05/2014 Medical History GERD Medical History Depression Medical History Asthma Medical History Rosacea Medical History Hypertension Surgical History cholecystectomy Surgical History section x 2 Surgical History partial hysterectomy Surgical History tonsillectomy and adenoidectomy Surgical History abcess in breast Surgical History carpal tunnel release in both wrists Hospitalization History surgeries
--- OUTSIDE RECORDS SUMMARY | 2019-06-20 10:33 | XMS REPORT ---
Author Author Shanice HENRIQUEZ [facility] eClinical[employer] Address Unknown Phone Unavailable Care Team Providers Care Field Artillery Basic Name Role Phone JONNATHAN HENRIQUEZ CP Unavailable Allergies, Adverse Reactions, Alerts Substance Reaction Event Type Cephalexin Info Not Available Drug Allergy Azithromycin Info Not Available Drug Allergy Problems Problem Type Condition Code Onset Dates Condition Statu s Assessment Encounter for screening mammogram for breast cancer Z1 2.31 Active Assessment Hypertension I10 Active Assessment Hepatitis C B19.20 Active Problem Family history of diabetes mellitus Z83.3 Active Problem Asthma J45.909 Active Problem Depression F32.9 Active Problem Hepatitis C B19.20 Active Problem History of frequent urinary tract infections Z87.440 Active Problem Overactive bladder N32.81 Active Problem Hypertension I10 Active Medications Medication Code System Code Instructions Start Date End Date Status Dosage Xanax [facility] [address]-08 0.5 MG Mar 13, 2014 1 ta blet by Oral route 2 times per day PRN Harvoni [facility] [address]-63 90-400 MG Orally Once a day Feb 04, 2015 1 tablet Symbicort [facility] [address]-51 80-4.5 MCG/ACT INHALE TWO PUFFS BY MOUTH TWICE DAILY Cranberry [facility] [address] 400 mg Mar 13, 2014 1 ca psule by Oral route 1 time per day Vitamin E [facility] [address]-88 200 unit Mar 13, 2014 1 capsule by Oral route 1 time per day Flaxseed Oil [facility] [address] 1,000 mg Mar 13, 2014 by Oral route 1 time per day Atenolol [facility] [address]-52 100 MG Orally Once a day Mar 11, 2015 1 tablet Acyclovir [facility] 15489956356 400 MG TAKE ONE TABLET BY MOUTH TWICE DAILY Vitamin D3 [facility] [address]78 1,000 unit Mar 13, 2014 take one tablet orally daily Glucosamine Sulfate [facility] [address]-78 500 mg Mar 13, 2014 1 capsule by Oral route 1 time per day Fluoxetine HCl [facility] 11639823980 20 MG TAKE ONE CAPSULE BY MOUTH ONCE DAILY Omeprazole [facility] [address]-31 20 mg Mar 13, 2014 ta ke 1 capsule (20 mg) by oral route once daily before a meal Albuterol Sulfate [facility] [address]-76 90 mcg/actuation Mar 13, 2014 inhale 1 puff by Inhalation route as needed every 4-6 hours PRN SOB, wheezing Krill Oil [facility] [address] 1000 MG Orally no t defined Premarin [facility] [address]-10 0.625 MG/GM Vaginal twice weekly Mar 11, 2015 as directed Procedures Procedure Coding System Code Date Office Visit, Est Pt., Level 3 CPT-4 27275 [facility] 2015 Vital Signs Date/Time: May 27, 2015 Temperature 96.6 F Weight 230.7 lbs Height 64 in BMI 39.60 Index Blood Pressure Diastolic 62 mmHg Blood Pressure Systolic 120 mmHg Cardiac Monitoring Heart Rate 72 bpm Results No Known Results Summary Purpose eClinicalWorks Submission
--- OUTSIDE RECORDS SUMMARY | 2019-06-20 10:33 | XMS REPORT ---
Author Author Shanice HENRIQUEZ [facility] Address [address] [place] [address] Care Team Providers Care Sausage Meat Trimmer Name Role Phone JONNATHAN HENRIQUEZ Unavailable PROBLEMS Type Condition ICD9-CM Code [id number] Code Onset Dates Condition S tatus SNOMED Code Problem History of frequent urinary tract infections Z87.4 40 Active 2090946994207 Problem Herpes simplex type II infection B00.9 Active 073973821 Problem Overactive bladder N32.81 Active 2 67928101 Problem Family history of diabetes mellitus Z83.3 Active 596501042 Problem Depression F32.9 Active 84999779 Problem Hepatitis C B19.20 Active 00814802 Problem Hypertension I10 Active 7195709 3 Problem Asthma J45.909 Active 477270402 ALLERGIES Substance Reaction Event Type Date Status Cephalexin Unknown Drug Allergy Feb, Active Azithromycin Unknown Drug Allergy Feb, Active SOCIAL HISTORY Never Assessed PLAN OF CARE Activity Details Follow Up prn Reason: VITAL SIGNS Height 64 in 2016-03-15 Weight 230.8 lbs 2016-03-15 Temperature 98.0 degrees Fahrenheit 2016-03-15 Heart Rate 66 bpm 2016-03-15 Respiratory Rate 24 2016-03-15 BMI 39.61 kg/m2 2016-03-15 Blood pressure systolic 142 mmHg 2016-03-15 Blood pressure diastolic 82 mmHg 2016-03-15 MEDICATIONS Medication Instructions Dosage Frequency Start Date End Date Duration S tatus Krill Oil 1000 MG Active Xanax 0.5 MG 1 tablet by Oral route 2 times per day PRN Feb, Active Acyclovir 400 MG TAKE ONE TABLET BY MOUTH TWICE DAILY 30 Active Albuterol Sulfate 90 mcg/actuation inhal e 1 puff by Inhalation route as needed every 4-6 hours PRN SOB, wheezing Feb, Active Premarin 0.625 MG/GM Vaginal twice weekly as directed Feb, 16 Active Glucosamine Sulfate 500 mg 1 capsule by Oral route 1 t luci per day Feb, Active Flaxseed Oil 1,000 mg by Oral route 1 time per day 2014 Active Levaquin 500 MG Orally Once a day 1 tablet 24h Feb, Mar, 10 day(s) Active Atenolol 100 MG Orally Once a day 1 tablet 24h 30 Active Symbicort 80-4.5 MCG/ACT Inhalation Twice a day 2 puffs 12h 90 days Active Omeprazole 20 mg take 1 capsule (20 m g) by oral route once daily before a meal Feb, Active Fluoxetine HCl 20 MG TAKE ONE CAPSULE BY MOUTH ONCE DAILY 90 Active Cranberry 400 mg 1 capsule by Oral route 1 time per day Feb, Active Vitamin D3 1,000 unit take one tablet orally daily 2014 Active Vitamin E 200 unit 1 capsule by Oral route 1 time per day Feb, Active RESULTS No Results PROCEDURES No Known procedures IMMUNIZATIONS No Known Immunizations MEDICAL (GENERAL) HISTORY Type Description Date Medical History Chronic Hep C Stage II Liver disease Genotype [address] Liver bx 2004 Relapsed after 18 mo of Interferon tx in May 2007 Repeat tx for 46 weeks completed August 2011.. Genotype 1a [place] [facility] 05/2014 Medical History GERD Medical History Depression Medical History Asthma Medical History Rosacea Medical History Hypertension Surgical History cholecystectomy Surgical History section x 2 Surgical History partial hysterectomy Surgical History tonsillectomy and adenoidectomy Surgical History abcess in breast Surgical History carpal tunnel release in both wrists Hospitalization History surgeries
--- OUTSIDE RECORDS SUMMARY | 2019-06-20 10:33 | XMS REPORT ---
Author Author Shanice HOOD Organization [employer] Address Unknown Phone Unavailable Care Team Providers Care Bistro Attendant Name Role Phone VANESSA HOOD CP Unavailable Allergies No Known Allergies Problems Problem Type Condition Code Onset Dates Condition Statu s Problem Hepatitis C 070.70 Active Problem Family history of diabetes mellitus V18.0 Active Problem Asthma, unspecified, unspecified status 493.90 Active Problem Major depressive disorder, recurrent episode, mild 296 .31 Active Problem Essential hypertension, benign 401.1 Active Problem Routine general medical examination at [facility] V70.0 Active Problem Female stress incontinence 625.6 A ctive Problem Dysthymic disorder 300.4 Active Medications No Known Medications Results No Known Results Summary Purpose [employer]Clinical[employer] Submission
--- OUTSIDE RECORDS SUMMARY | 2019-06-20 10:33 | XMS REPORT ---
Author Author Shanice SCHAEFFER Organization [facility] Address [address] [place] [address] Care Team Providers Care Curing Press Operator Name Role Phone CURTIS SCHAEFFER Unavailable PROBLEMS Type Condition ICD9-CM Code [id number] Code Onset Dates Condition S tatus SNOMED Code Problem History of frequent urinary tract infections Z87.4 40 Active 0326170349810 Problem Herpes simplex type II infection B00.9 Active 842968004 Problem Overactive bladder N32.81 Active 2 63883650 Problem Family history of diabetes mellitus Z83.3 Active 856549264 Problem Depression F32.9 Active 32762520 Problem Hepatitis C B19.20 Active 02683397 Problem Hypertension I10 Active 3700737 3 Problem Asthma J45.909 Active 694202744 ALLERGIES Substance Reaction Event Type Date Status Cephalexin Unknown Drug Allergy Jul, Active Azithromycin Unknown Drug Allergy Jul, Active ENCOUNTERS Encounter Location Date Diagnosis [facility] [address] [phone] Feb, Dysuria R30.0 ; Urinary trac t infection without hematuria, site unspecified N39.0 ; Asthma J45.909 and Bronchitis J40 [facility] [address] [place] [id number] [place] [address] Sep, [facility] [address] [place] [id number] [address] [place] [address] Aug, Wheezing R06.2 ; Hoarse voic e quality R49.0 ; Cough R05 and Encounter for screening mammogram for breast cancer Z12.31 [facility] [address] [place] [id number] [address] [place] [address] Jul, Pharyngitis due to other org anism J02.8 [facility] [address] [place] [id number] [place] [address] Apr, Sore throat J02.9 ; Bronchit is J40 ; Herpes simplex type II infection B00.9 and Eustachian tube dysfunction, bilateral H69.83 [place] [address] [address] Feb, Acute non-recurrent maxillar y sinusitis J01.00 [place] [address] [address] Feb, Asthma J45.909 [place] [address] [address] Jan, [place] [address] [address] Jan, Acute non-recurrent maxillar y sinusitis J01.00 ; Hypertension I10 and History of hepatitis C virus infection Z86.19 [place] [address] [address] Jan, Hep C w/ coma, chronic B18.[address] [address] Jan, [place] [address] [address] Oct, Osteoarthritis of both knees , unspecified osteoarthritis type M17.0 [place] [address] [address] Sep, Pain in right knee M25.561 ; Pain in left knee M25.562 ; Other chronic pain G89.29 ; Pain in thoracic spine M54.6 ; Acute gastritis without hemorrhage, unspecified gastritis type K29.00 ; Urinary tract infection, site not specified N39.0 and Hematuria, unspecified R31.9 [place] [address] [address] Jul, Hypertension I10 ; Bronchiti s J40 ; Unspecified viral hepatitis C without hepatic coma B19.20 ; Asthma J45.909 and Hep C w/ coma, chronic B18.2 [facility] [address] [facility] [id number] [address] [place] [address] June, [facility] [address] [facility] [id number] [address] [place] [address] May, Bronchitis J40 ; Asthma J45. 909 and Unspecified viral hepatitis C without hepatic coma B19.20 [facility] [address] [facility] [id number] [address] [place] [address] May, Unspecified viral hepatitis C without hepatic coma B19.20 [facility] [address] [facility] [id number] [address] [place] [address] May, Hypertension I10 ; Hepatitis C B19.20 and Encounter for screening mammogram for breast cancer Z12.31 [facility] [address] [facility] [id number] [address] [place] [address] Apr, [facility] [address] [facility] [id number] [address] [place] [address] Apr, Unspecified viral hepatitis C without hepatic coma B19.20 and Hep C w/ coma, chronic B18.2 [facility] [address] [facility] [id number] [address] [place] [address] Mar, [facility] [address] [facility] [id number] [address] [place] [address] Mar, Hypertension I10 and Unspeci fied viral hepatitis C without hepatic coma B19.20 [facility] [address] [facility] [id number] [address] [place] [address] Feb, [facility] [address] [facility] [id number] [address] [place] [address] Feb, Hypertension I10 [facility] [address] [facility] [id number] [address] [place] [address] Feb, Hypertension I10 ; Hepatitis C B19.20 and History of frequent urinary tract infections Z87.[address] [place] [id number] [id number] [address] [place] [address] 14 Feb, 2015 Unspecified viral hepatitis C without hepatic coma B19.20 and Hep C w/ coma, chronic B18.2 [facility] [address] [id number] [address] [place] [address] 12 Feb, 2015 Hep C w/ coma, chronic B18.2 [facility] [address] [id number] [address] [place] [address] Jan, [facility] [address] [facility] [id number] [address] [place] [address] Jan, Unspecified viral hepatitis C without hepatic coma B19.20 and Hep C w/ coma, chronic B18.2 [facility] [address] [facility] [id number] [address] [place] [address] 15 Jan, 2015 [facility] [address] [facility] [id number] [address] [place] [address] Jan, Sore throat J02.9 and Dysuri a R30.0 [facility] [address] [facility] [id number] [address] [place] [address] Nov, [facility] [address] [facility] [id number] [address] [place] [address] Nov, [facility] [address] [facility] [id number] [address] [place] [address] Nov, [facility] [address] [facility] [id number] [address] [place] [address] 08 Nov, 2014 Hepatitis C 070.70 [facility] [address] [facility] [id number] [address] [place] [address] 02 Nov, 2014 [facility] [address] [facility] [id number] [address] [place] [address] 16 Oct, 2014 Hepatitis C 070.70 [facility] [address] [facility] [id number] [address] [place] [address] Oct, Upper respiratory infection 465.9 [facility] [address] [id number] [address] [place] [address] Jul, [facility] [address] [id number] [address] [place] [address] June, Hepatitis C 070.70 [facility] [address] [id number] [address] [place] [address] May, [facility] [address] [id number] [address] [place] [address] May, [facility] [address] [id number] [address] [place] [address] Apr, [facility] [address] [id number] [address] [place] [address] Apr, [facility] [address] [id number] [address] [place] [address] Mar, [facility] [address] [id number] [address] [place] [address] Mar, [facility] [address] [id number] [address] [place] [address] Mar, [facility] [address] [id number] [address] [place] [address] Feb, [facility] [address] [facility] [id number] [address] [place] [address] Feb, [facility] [address] [id number] [address] [place] [address] Feb, [facility] [address] [id number] [address] [place] [address] Feb, IMMUNIZATIONS No Known Immunizations SOCIAL HISTORY Never Assessed REASON FOR VISIT Sore throat, cough, head congestion for 5 days. [email or web address] PLAN OF CARE VITAL SIGNS Height 64 in 2016-08-03 Weight 229.4 lbs 2016-08-03 Temperature 98.6 degrees Fahrenheit 2016-08-03 Heart Rate 72 bpm 2016-08-03 Respiratory Rate 20 2016-08-03 BMI 39.37 kg/m2 2016-08-03 Blood pressure systolic 128 mmHg 2016-08-03 Blood pressure diastolic 80 mmHg 2016-08-03 MEDICATIONS Medication Instructions Dosage Frequency Start Date End Date Duration S tatus Premarin 0.625 MG/GM Vaginal twice weekly as directed Feb, 16 Active Albuterol Sulfate 90 mcg/actuation inhal e 1 puff by Inhalation route as needed every 4-6 hours PRN SOB, wheezing Feb, Active Omeprazole 20 mg take 1 capsule (20 m g) by oral route once daily before a meal Feb, Active Flaxseed Oil 1,000 mg by Oral route 1 time per day 2014 Active Krill Oil 1000 MG Active Cranberry 400 mg 1 capsule by Oral route 1 time per day Feb, Active Symbicort 80-4.5 MCG/ACT Inhalation Twice a day 2 puffs 12h 90 days Active Glucosamine Sulfate 500 mg 1 capsule by Oral route 1 t luci per day Feb, Active Amoxicillin 500 mg Orally 3 times a day 1 capsule 8h Jul, 17 1 Aug, 2016 10 day(s) Active Vitamin D3 1,000 unit take one tablet orally daily 2014 Active Fluoxetine HCl 20 MG TAKE ONE CAPSULE BY MOUTH ONCE DAILY 90 Active Acyclovir 400 mg Orally 2 times a day TAKE ONE TABLET BY MOUTH TWIC E DAILY 12h 30 Active Vitamin E 200 unit 1 capsule by Oral route 1 time per day Feb, Active Xanax 0.5 MG 1 tablet by Oral route 2 times per day PRN Feb, Active Pseudoephedrine HCl 60 mg Orally every 6 hrs 1 tablet as needed 6h Apr, 07 days Active Atenolol 100 MG Orally Once a day 1 tablet 24h 90 Active Mucinex Active RESULTS No Results PROCEDURES No Known procedures INSTRUCTIONS MEDICATIONS ADMINISTERED No Known Medications MEDICAL (GENERAL) HISTORY Type Description Date Medical History Chronic Hep C Stage II Liver disease Genotype [address] Liver bx 2004 Relapsed after 18 mo of Interferon tx in May 2007 Repeat tx for 46 weeks completed August 2011.. Genotype 1a [place] [facility] 05/2014 Medical History GERD Medical History Depression Medical History Asthma Medical History Rosacea Medical History Hypertension Surgical History cholecystectomy Surgical History section x 2 Surgical History partial hysterectomy Surgical History tonsillectomy and adenoidectomy Surgical History abcess in breast Surgical History carpal tunnel release in both wrists Hospitalization History surgeries
--- OUTSIDE RECORDS SUMMARY | 2019-06-20 10:33 | XMS REPORT ---
Author Author Shanice HENRIQUEZ [facility] [employer] Address Unknown Phone Unavailable Care Team Providers Care Garageman Name Role Phone JONNATHAN HENRIQUEZ CP Unavailable Allergies No Known Allergies Problems Problem Type Condition Code Onset Dates Condition Statu s Problem Herpes simplex type II infection B00.9 Active Problem Family history of diabetes mellitus Z83.3 Active Problem Asthma J45.909 Active Problem Depression F32.9 Active Problem Hepatitis C B19.20 Active Problem History of frequent urinary tract infections Z87.440 Active Problem Overactive bladder N32.81 Active Problem Hypertension I10 Active Medications No Known Medications Results No Known Results Summary Purpose [employer]ClinicalWorks Submission
--- OUTSIDE RECORDS SUMMARY | 2019-06-20 10:33 | XMS REPORT ---
Author Author Shanice HENRIQUEZ [facility] [employer] Address Unknown Phone Unavailable Care Team Providers Care Enterprise Manager Name Role Phone JONNATHAN HENRIQUEZ CP Unavailable Allergies No Known Allergies Problems Problem Type Condition Code Onset Dates Condition Statu s Problem Hepatitis C 070.70 Active Problem Family history of diabetes mellitus V18.0 Active Problem Asthma, unspecified, unspecified status 493.90 Active Problem Major depressive disorder, recurrent episode, mild 296 .31 Active Problem Essential hypertension, benign 401.1 Active Problem Routine general medical examination at [facility] V70.0 Active Problem Female stress incontinence 625.6 A ctive Problem Dysthymic disorder 300.4 Active Medications Medication Code System Code Instructions Start Date End Date Status Dosage Bactrim DS [facility] [id number] 800-160 MG Orally Twice a day Jan 27, 2015 Feb 03, 2015 1 tablet Results No Known Results Summary Purpose [employer]ClinicalWorks Submission
--- OUTSIDE RECORDS SUMMARY | 2019-06-20 10:33 | XMS REPORT ---
Author Author Shanice HENRIQUEZ [facility] [employer] Address Unknown Phone Unavailable Care Team Providers Care Pipe Fitter Supervisor Name Role Phone JONNATHAN HENRIQUEZ CP Unavailable Allergies No Known Allergies Problems Problem Type Condition Code Onset Dates Condition Statu s Problem Hepatitis C 070.70 Active Assessment Hepatitis C 070.70 Active Problem Family history of diabetes mellitus V18.0 Active Problem Asthma, unspecified, unspecified status 493.90 Active Problem Major depressive disorder, recurrent episode, mild 296 .31 Active Problem Essential hypertension, benign 401.1 Active Problem Routine general medical examination at [facility] V70.0 Active Problem Female stress incontinence 625.6 A ctive Problem Dysthymic disorder 300.4 Active Medications No Known Medications Procedures Procedure Coding System Code Date HIV-1/HIV-2, SINGLE ASSAY CPT-4 65504 Nov DRUG SCREEN NON TLC DEVICES CPT-4 05615 Nov 20, 2014 PROTHROMBIN TIME CPT-4 88260 Nov 20, 2014 VENIPUNCT, ROUTINE* CPT-4 13056 Nov 20, 2014 Results Name Result Date Reference Range Unit Abnormali ty Flag ROUTINE VENIPUNCTURE Summary Purpose eClinicalWorks Submission
--- OUTSIDE RECORDS SUMMARY | 2019-06-20 10:33 | XMS REPORT ---
Author Author Shanice HOOD Organization [employer] Address Unknown Phone Unavailable Care Team Providers Care Spindle Carver Name Role Phone VANESSA HOOD CP Unavailable Allergies No Known Allergies Problems Problem Type Condition Code Onset Dates Condition Statu s Problem Hepatitis C 070.70 Active Assessment Hep C w/ coma, chronic B18.2 Activ e Problem Family history of diabetes mellitus V18.0 Active Problem Asthma, unspecified, unspecified status 493.90 Active Problem Major depressive disorder, recurrent episode, mild 296 .31 Active Problem Essential hypertension, benign 401.1 Active Problem Routine general medical examination at [facility] V70.0 Active Problem Female stress incontinence 625.6 A ctive Problem Dysthymic disorder 300.4 Active Medications No Known Medications Results No Known Results Summary Purpose eClinicalWorks Submission
--- OUTSIDE RECORDS SUMMARY | 2019-06-20 10:33 | XMS REPORT ---
Author Author Shanice HOOD Organization [employer] Address Unknown Phone Unavailable Care Team Providers Care Electroslag Welding Machine Operator Name Role Phone VANESSA HOOD CP Unavailable Allergies No Known Allergies Problems Problem Type Condition Code Onset Dates Condition Statu s Assessment Hypertension I10 Active Problem Family history of diabetes mellitus Z83.3 Active Problem Asthma J45.909 Active Problem Depression F32.9 Active Problem Hepatitis C B19.20 Active Problem History of frequent urinary tract infections Z87.440 Active Problem Overactive bladder N32.81 Active Problem Hypertension I10 Active Medications No Known Medications Results No Known Results Summary Purpose [employer]ClinicalWorks Submission
--- OUTSIDE RECORDS SUMMARY | 2019-06-20 10:33 | XMS REPORT ---
Author Author Shanice Dickey Doctor Organization [facility] Address Unknown Phone Unavailable Care Team Providers Care Drill Grinder Name Role Phone Migration, Doctor Unavailable Unavailable PROBLEMS Type Condition ICD9-CM Code PPG95-RM Code Onset Dates Condition S tatus SNOMED Code Problem Hypertension I10 Active 7534094 3 Problem Family history of diabetes mellitus Z83.3 Active 975616146 Problem History of frequent urinary tract infections Z87.4 40 Active 1749636317409 Problem Anxiety F41.9 Active 59535199 Problem Asthma J45.909 Active 538263641 Problem Urge incontinence N39.41 Active 87 267908 Problem Herpes simplex type II infection B00.9 Active 158440716 Problem Hepatitis C B19.20 Active 00233696 Problem Depression F32.9 Active 55107478 Problem Overactive bladder N32.81 Active 2 52288128 Problem Other urinary incontinence N39.498 Act bethany 702944153 ALLERGIES No Information ENCOUNTERS Encounter Location Date Diagnosis [facility] [address] [address] 16 May, 2018 Prediabetes R73.03 [facility] [address] [facility] [id number] [address] [place] [address] May, Hypertension I10 ; Dysuria R 30.0 ; Seborrheic keratosis L82.1 ; Anxiety F41.9 and Urge incontinence N39.41 [facility] [address] [facility] [id number] [address] [place] [address] Jan, Acute sinusitis J01.90 [facility] [address] [facility] [id number] [address] [place] [address] Oct, [facility] [address] [facility] [id number] [address] [place] [address] Sep, Acute non-recurrent maxillar y sinusitis J01.00 ; Hypertension I10 ; Depression F32.9 ; Asthma J45.909 and Lymphadenopathy R59.1 [facility] [address] [address] Feb, Dysuria R30.0 ; Urinary trac t infection without hematuria, site unspecified N39.0 ; Asthma J45.909 and Bronchitis J40 [place] [address] [address] Sep, [place] [address] [address] Aug, Wheezing R06.2 ; Hoarse voic e quality R49.0 ; Cough R05 and Encounter for screening mammogram for breast cancer Z12.31 [facility] [address] [address] 21 Jul, 2016 Pharyngitis due to other org anism J02.8 [place] [address] [address] Apr, Sore throat J02.9 ; Bronchit is J40 ; Herpes simplex type II infection B00.9 and Eustachian tube dysfunction, bilateral H69.83 [place] [address] [address] Feb, Acute non-recurrent maxillar y sinusitis J01.00 [place] [address] [address] Feb, Asthma J45.909 [place] [address] [place] [id number] [address] [place] [address] Jan, [place] [address] [address] Jan, Acute non-recurrent maxillar y sinusitis J01.00 ; Hypertension I10 and History of hepatitis C virus infection Z86.19 [place] [address] [address] Jan, Hep C w/ coma, chronic B18.2 [facility] [address] [facility] [id number] [address] [place] [address] Jan, [facility] [address] [facility] [id number] [address] [place] [address] Oct, Osteoarthritis of both knees , unspecified osteoarthritis type M17.0 [place] [address] [place] [id number] [address] [place] [address] Sep, Pain in right knee M25.561 ; Pain in left knee M25.562 ; Other chronic pain G89.29 ; Pain in thoracic spine M54.6 ; Acute gastritis without hemorrhage, unspecified gastritis type K29.00 ; Urinary tract infection, site not specified N39.0 and Hematuria, unspecified R31.9 [place] [address] [place] [id number] [place] [address] Jul, Hypertension I10 ; Bronchiti s J40 ; Unspecified viral hepatitis C without hepatic coma B19.20 ; Asthma J45.909 and Hep C w/ coma, chronic B18.2 [place] [address] [facility] [id number] [address] [place] [address] June, [place] [address] [place] [id number] [place] [address] May, Bronchitis J40 ; Asthma J45. 909 and Unspecified viral hepatitis C without hepatic coma B19.20 [place] [address] [facility] [id number] [address] [place] [address] May, Unspecified viral hepatitis C without hepatic coma B19.20 [place] [address] [facility] [id number] [address] [place] [address] May, Hypertension I10 ; Hepatitis C B19.20 and Encounter for screening mammogram for breast cancer Z12.31 [place] [address] [place] [id number] [place] [address] Apr, [place] [address] [place] [id number] [place] [address] Apr, Unspecified viral hepatitis C without hepatic coma B19.20 and Hep C w/ coma, chronic B18.2 [facility] [address] [facility] [id number] [address] [place] [address] Mar, [facility] [address] [place] [id number] [address] [place] [address] Mar, Hypertension I10 and Unspeci fied viral hepatitis C without hepatic coma B19.20 [facility] [address] [place] [id number] [address] [place] [address] Feb, [facility] [address] [place] [id number] [place] [address] Feb, Hypertension I10 [facility] [address] [place] [id number] [place] [address] Feb, Hypertension I10 ; Hepatitis C B19.20 and History of frequent urinary tract infections Z87.440 [facility] [address] [place] [id number] [address] [place] [address] Feb, Unspecified viral hepatitis C without hepatic coma B19.20 and Hep C w/ coma, chronic B18.2 [facility] [address] [place] [id number] [address] [place] [address] Feb, Hep C w/ coma, chronic B18.2 [facility] [address] [place] [id number] [place] [address] Jan, [facility] [address] [place] [id number] [address] [place] [address] Jan, Unspecified viral hepatitis C without hepatic coma B19.20 and Hep C w/ coma, chronic B18.2 [facility] [address] [place] [id number] [address] [place] [address] Jan, [facility] [address] [place] [id number] [address] [place] [address] Jan, Sore throat J02.9 and Dysuri a R30.0 [facility] [address] [id number] [address] [place] [address] Nov, [facility] [address] [id number] [address] [place] [address] Nov, [facility] [address] [facility] [id number] [address] [place] [address] Nov, [facility] [address] [facility] [id number] [address] [place] [address] Nov, Hepatitis C 070.70 [facility] [address] [id number] [address] [place] [address] Nov, [facility] [address] [facility] [id number] [address] [place] [address] Oct, Hepatitis C 070.70 [facility] [address] [facility] [id number] [address] [place] [address] Oct, Upper respiratory infection 465.9 [facility] [address] [id number] [address] [place] [address] Jul, [facility] [address] [facility] [id number] [address] [place] [address] June, Hepatitis C 070.70 [facility] [address] [facility] [id number] [address] [place] [address] May, [facility] [address] [id number] [address] [place] [address] May, [facility] [address] [facility] [id number] [address] [place] [address] Apr, [facility] [address] [facility] [id number] [address] [place] [address] Apr, [facility] [address] [facility] [id number] [address] [place] [address] Mar, [facility] [address] [facility] [id number] [address] [place] [address] Mar, [facility] [address] [facility] [id number] [address] [place] [address] Mar, [facility] [address] [facility] [id number] [address] [place] [address] Feb, [facility] [address] [facility] [id number] [address] [place] [address] Feb, [facility] [address] [facility] [id number] [address] [place] [address] Feb, [facility] [address] [facility] [id number] [address] [place] [address] Feb, IMMUNIZATIONS No Known Immunizations SOCIAL HISTORY Never Assessed REASON FOR VISIT [facility] PLAN OF CARE VITAL SIGNS MEDICATIONS Unknown Medications RESULTS No Results PROCEDURES No Known procedures INSTRUCTIONS MEDICATIONS ADMINISTERED No Known Medications MEDICAL (GENERAL) HISTORY Type Description Date Medical History Chronic Hep C Stage II Liver disease Genotype [address] Liver bx 2004 Relapsed after 18 mo of Interferon tx in May 2007 Repeat tx for 46 weeks completed August 2011.. Genotype 1a [place] [facility] 05/2014 Medical History GERD Medical History Depression Medical History Asthma Medical History Rosacea Medical History Hypertension Surgical History cholecystectomy Surgical History section x 2 Surgical History partial hysterectomy Surgical History tonsillectomy and adenoidectomy Surgical History abcess in breast Surgical History carpal tunnel release in both wrists Hospitalization History surgeries
--- OUTSIDE RECORDS SUMMARY | 2019-06-20 10:33 | XMS REPORT ---
Author Author Shanice HENRIQUEZ [facility] eClinicalWorks Address Unknown Phone Unavailable Care Team Providers Care Virtual Assistant For Advertisers Name Role Phone JONNATHAN HENRIQUEZ CP Unavailable Allergies, Adverse Reactions, Alerts Substance Reaction Event Type Cephalexin Info Not Available Drug Allergy Azithromycin Info Not Available Drug Allergy Problems Problem Type Condition Code Onset Dates Condition Statu s Assessment Unspecified viral hepatitis C without hepatic coma B19 .20 Active Assessment Bronchitis J40 Active Assessment Asthma J45.909 Active Problem Family history of diabetes mellitus Z83.3 Active Problem Asthma J45.909 Active Problem Depression F32.9 Active Problem Hepatitis C B19.20 Active Problem History of frequent urinary tract infections Z87.440 Active Problem Overactive bladder N32.81 Active Problem Hypertension I10 Active Medications Medication Code System Code Instructions Start Date End Date Status Dosage Fluoxetine HCl [facility] 66756934271 20 MG TAKE ONE CAPSULE BY MOUTH ONCE DAILY Levaquin [facility] [address]-83 500 MG Orally Once a day June 08, 016 June 19, 2015 1 tablet Vitamin E [facility] [address]-60 200 unit Mar 13, 2014 1 capsule by Oral route 1 time per day Harvoni [facility] [address]-78 90-400 MG Orally Once a day Feb 04, 2015 1 tablet Cranberry [facility] [address]5962-[address]363 400 mg Mar 13, 2014 1 ca psule by Oral route 1 time per day Vitamin D3 [facility] 82026-[address]85 1,000 unit Mar 13, 2014 take one tablet orally daily Acyclovir [facility] 61183540322 400 MG TAKE ONE TABLET BY MOUTH TWICE DAILY Mucinex [facility] [address]-25 600 MG Orally every 12 hrs 1 tablet as needed Premarin [facility] [address]-21 0.625 MG/GM Vaginal twice weekly Mar 11, 2015 as directed Flaxseed Oil [facility] 45673-[address]70 1,000 mg Mar 13, 2014 by Oral route 1 time per day Glucosamine Sulfate [facility] [address]-41 500 mg Mar 13, 2014 1 capsule by Oral route 1 time per day Xanax [facility] [address]-72 0.5 MG Mar 13, 2014 1 ta blet by Oral route 2 times per day PRN Atenolol [facility] [address]-65 100 MG Orally Once a day Mar 11, 2015 1 tablet Albuterol Sulfate [facility] [address]-65 90 mcg/actuation Mar 13, 2014 inhale 1 puff by Inhalation route as needed every 4-6 hours PRN SOB, wheezing Krill Oil [facility] 19982-66619 1000 MG Orally no t defined Omeprazole [facility] [address]-05 20 mg Mar 13, 2014 ta ke 1 capsule (20 mg) by oral route once daily before a meal Symbicort [facility] [address]-89 80-4.5 MCG/ACT INHALE TWO PUFFS BY MOUTH TWICE DAILY PredniSONE [facility] [address]-85 10 mg Orally Onc e a day X 4 days, 3 tabs daily X 3 days, 2 tabs daily X 2 days, 1 tab for 1 day June 09, 2015 4 tablets Procedures Procedure Coding System Code Date Office Visit, Est Pt., Level 3 CPT-4 38096 A [facility] 2015 Vital Signs Date/Time: June 09, 2015 Temperature 98.6 F Weight 230.6 lbs Height 64 in BMI 39.58 Index Blood Pressure Diastolic 90 mmHg Blood Pressure Systolic 144 mmHg Cardiac Monitoring Heart Rate 60 bpm Results No Known Results Summary Purpose eClinicalWorks Submission
--- OUTSIDE RECORDS SUMMARY | 2019-06-20 10:33 | XMS REPORT ---
Author Author Shanice HENRIQUEZ [facility] eClinicalWorks Address Unknown Phone Unavailable Care Team Providers Care Treating Engineer Helper Name Role Phone JONNATHAN HENRIQUEZ CP Unavailable [...]
--- OUTSIDE RECORDS SUMMARY | 2019-06-20 10:33 | XMS REPORT ---
Author Author Shanice HENRIQUEZ Organization [facility] Address [address] [place] [address] Care Team Providers Care Ranch Supervisor Name Role Phone JONNATHAN HENRIQUEZ Unavailable PROBLEMS Type Condition ICD9-CM Code HWL52-SV Code Onset Dates Condition S tatus SNOMED Code Problem History of frequent urinary tract infections Z87.4 40 Active [id number] Problem Herpes simplex type II infection B00.9 Active 949008310 Problem Overactive bladder N32.81 Active 2 22862795 Problem Family history of diabetes mellitus Z83.3 Active 725008190 Problem Depression F32.9 Active 55974653 Problem Hepatitis C B19.20 Active 47093030 Problem Hypertension I10 Active 8347042 3 Problem Asthma J45.909 Active 753088571 ALLERGIES Substance Reaction Event Type Date Status Cephalexin Unknown Drug Allergy Sep, Active Azithromycin Unknown Drug Allergy Sep, Active ENCOUNTERS Encounter Location Date Diagnosis [place] [address] [place] [id number] [place] [address] Oct, [place] [address] [place] [id number] [place] [address] Sep, Acute non-recurrent maxillar y sinusitis J01.00 ; Hypertension I10 ; Depression F32.9 ; Asthma J45.909 and Lymphadenopathy R59.1 [facility] [address] [facility] [id number] [place] [address] Feb, Dysuria R30.0 ; Urinary trac t infection without hematuria, site unspecified N39.0 ; Asthma J45.909 and Bronchitis J40 [place] [address] [facility] [id number] [place] [address] Sep, [facility] [address] [place] [id number] [place] [address] Aug, Wheezing R06.2 ; Hoarse voic e quality R49.0 ; Cough R05 and Encounter for screening mammogram for breast cancer Z12.31 [facility] [address] [facility] [id number] [place] [phone] Jul, Pharyngitis due to other org anism J02.8 [facility] [address] [place] [id number] [address] [place] [address] Apr, Sore throat J02.9 ; Bronchit is J40 ; Herpes simplex type II infection B00.9 and Eustachian tube dysfunction, bilateral H69.83 [place] [address] [address] Feb, Acute non-recurrent maxillar y sinusitis J01.00 [place] [address] [address] Feb, Asthma J45.909 [place] [address] [place] [id number] [place] [address] Jan, [place] [address] [address] Jan, Acute non-recurrent maxillar y sinusitis J01.00 ; Hypertension I10 and History of hepatitis C virus infection Z86.19 [place] [id number] [place] [address] Jan, Hep C w/ coma, chronic B18.2 [facility] [address] [facility] [id number] [place] [address] Jan, [place] [address] [address] Oct, Osteoarthritis of both knees , unspecified osteoarthritis type M17.0 [facility] [address] [place] [id number] [place] [address] Sep, Pain in right knee M25.561 ; Pain in left knee M25.562 ; Other chronic pain G89.29 ; Pain in thoracic spine M54.6 ; Acute gastritis without hemorrhage, unspecified gastritis type K29.00 ; Urinary tract infection, site not specified N39.0 and Hematuria, unspecified R31.9 [facility] [address] [facility] [id number] [place] [address] Jul, Hypertension I10 ; Bronchiti s J40 ; Unspecified viral hepatitis C without hepatic coma B19.20 ; Asthma J45.909 and Hep C w/ coma, chronic B18.2 [place] [address] [facility] [id number] [place] [address] June, [place] [address] [facility] [id number] [place] [address] May, Bronchitis J40 ; Asthma J45. 909 and Unspecified viral hepatitis C without hepatic coma B19.20 [place] [address] [facility] [id number] [place] [address] May, Unspecified viral hepatitis C without hepatic coma B19.20 [place] [address] [facility] [id number] [place] [address] May, Hypertension I10 ; Hepatitis C B19.20 and Encounter for screening mammogram for breast cancer Z12.31 [place] [address] [facility] [id number] [place] [phone] Apr, [place] [address] [facility] [id number] [place] [address] Apr, Unspecified viral hepatitis C without hepatic coma B19.20 and Hep C w/ coma, chronic B18.2 [place] [address] [facility] [id number] [place] [address] Mar, [place] [address] [facility] [id number] [place] [address] Mar, Hypertension I10 and Unspeci fied viral hepatitis C without hepatic coma B19.20 [place] [address] [facility] [id number] [place] [address] Feb, [facility] [address] [facility] [id number] [place] [address] Feb, Hypertension I10 [facility] [address] [place] [id number] [place] [address] Feb, Hypertension I10 ; Hepatitis C B19.20 and History of frequent urinary tract infections Z87.440 [facility] [address] [place] [id number] [place] [address] Feb, Unspecified viral hepatitis C without hepatic coma B19.20 and Hep C w/ coma, chronic B18.2 [facility] [address] [place] [id number] [place] [address] Feb, Hep C w/ coma, chronic B18.2 [facility] [address] [place] [id number] [place] [address] Jan, [facility] [address] [place] [id number] [place] [address] Jan, Unspecified viral hepatitis C without hepatic coma B19.20 and Hep C w/ coma, chronic B18.2 [facility] [address] [place] [id number] [place] [address] Jan, [facility] [address] [place] [id number] [place] [address] Jan, Sore throat J02.9 and Dysuri a R30.0 [facility] [address] [facility] [id number] [place] [phone] Nov, [facility] [address] [place] [id number] [place] [address] Nov, [facility] [address] [place] [id number] [place] [address] Nov, [facility] [address] [place] [id number] [place] [address] Nov, Hepatitis C 070.70 [facility] [address] [id number] [address] [place] [address] Nov, [facility] [address] [id number] [address] [place] [address] 16 Oct, 2014 Hepatitis C 070.70 [facility] [address] [id number] [address] [place] [phone] 14 Oct, 2014 Upper respiratory infection 465.9 [facility] [address] [id number] [address] [place] [address] Jul, [facility] [address] [id number] [address] [place] [address] June, Hepatitis C 070.70 [facility] [address] [id number] [address] [place] [address] May, [facility] [address] [id number] [address] [place] [address] May, [facility] [address] [id number] [address] [place] [address] Apr, [facility] [address] [id number] [address] [place] [address] Apr, [facility] [address] [id number] [address] [place] [address] Mar, [facility] [address] [id number] [address] [place] [address] Mar, [facility] [address] [id number] [address] [place] [phone] Mar, [facility] [address] [id number] [address] [place] [phone] Feb, [facility] [address] [id number] [address] [place] [phone] Feb, [facility] [address] [id number] [address] [place] [address] Feb, [facility] [address] [facility] [address] [id number] [address] [place] [address] Feb, IMMUNIZATIONS No Known Immunizations SOCIAL HISTORY Never Assessed REASON FOR VISIT Blood Pressure, -Waylon HAND , PT reports she has been dealing with a lot of con gestion since her virus she had a month ago. -waylon HAND PLAN OF CARE Activity Details Follow Up 6 Months Reason:BP VITAL SIGNS Height 64 in 2017-10-09 Weight 216.4 lbs 2017-10-09 Temperature 97.6 degrees Fahrenheit 2017-10-09 Heart Rate 50 bpm 2017-10-09 Respiratory Rate 18 2017-10-09 Oximetry 98 % 2017-10-09 BMI 37.14 kg/m2 2017-10-09 Blood pressure systolic 132 mmHg 2017-10-09 Blood pressure diastolic 70 mmHg 2017-10-09 MEDICATIONS Medication Instructions Dosage Frequency Start Date [...] route 1 time per day Feb, Active Albuterol Sulfate 90 mcg/actuation inhal e 1 puff by Inhalation route as needed every 4-6 hours PRN SOB, wheezing Feb, Active Fluoxetine HCl 20 MG TAKE ONE CAPSULE BY MOUTH ONCE DAILY 30 Active Xanax 0.5 MG Orally Twice a day 1 tablet as needed 12h Feb, 28 days Active Acyclovir 400 MG Orally 2 times a day 1 tablet 12h 3 0 Active Levaquin 500 mg Orally Once a day 1 tablet 24h Sep, 6 S ep, 2018 10 day(s) Active Atenolol 100 MG TAKE ONE TABLET BY MOUTH ONCE DAILY 30 Active Glucosamine Sulfate 500 mg 1 capsule by Oral route 1 t luci per day Feb, Active Vitamin E 200 unit 1 capsule by Oral route 1 time per day Feb, Active Omeprazole 20 MG Orally Once a day 1 capsule 24h Feb, Active Premarin 0.625 MG/GM Vaginal twice weekly as directed Feb, 16 Active RESULTS No Results PROCEDURES Procedure Date Ordered Result Body Site LIPID PANEL Oct 09, 2017 COMPREHEN METABOLIC PANEL Oct 09, 2017 VENIPUNCT, ROUTINE* Oct 09, 2017 INSTRUCTIONS MEDICATIONS ADMINISTERED No Known Medications MEDICAL (GENERAL) HISTORY Type Description Date Medical History Chronic Hep C Stage II Liver disease Genotype [address] Liver bx 2004 Relapsed after 18 mo of Interferon tx in May 2007 Repeat tx for 46 weeks completed August 2011.. Genotype 1a Art lab 05/2014 Medical History GERD Medical History Depression Medical History Asthma Medical History Rosacea Medical History Hypertension Surgical History cholecystectomy Surgical History section x 2 Surgical History partial hysterectomy Surgical History tonsillectomy and adenoidectomy Surgical History abcess in breast Surgical History carpal tunnel release in both wrists Hospitalization History surgeries
--- OUTSIDE RECORDS SUMMARY | 2019-06-20 10:34 | XMS REPORT ---
Author Author Shanice HENRIQUEZ [facility] eClinicalWorks Address Unknown Phone Unavailable Care Team Providers Care Receiving Checker Name Role Phone JONNATHAN HENRIQUEZ CP Unavailable Allergies No Known Allergies Problems Problem Type Condition Code Onset Dates Condition Statu s Assessment Hypertension I10 Active Assessment Unspecified viral hepatitis C without hepatic coma B19 .20 Active Problem Family history of diabetes mellitus Z83.3 Active Problem Asthma J45.909 Active Problem Depression F32.9 Active Problem Hepatitis C B19.20 Active Problem History of frequent urinary tract infections Z87.440 Active Problem Overactive bladder N32.81 Active Problem Hypertension I10 Active Medications No Known Medications Procedures Procedure Coding System Code Date COMPLETE CBC W/AUTO DIFF WBC CPT-4 11097 Mar 26, 2015 COMPREHEN METABOLIC PANEL CPT-4 30751 Mar LIPID PANEL CPT-4 89947 Mar 26, 2015 VENIPUNCT, ROUTINE* CPT-4 99677 Mar 26, 2015 Results Name Result Date Reference Range Unit Abnormali ty Flag ROUTINE VENIPUNCTURE Summary Purpose eClinicalWorks Submission
--- OUTSIDE RECORDS SUMMARY | 2019-06-20 10:34 | XMS REPORT ---
Author Author Shanice HENRIQUEZ Organization e[employer] Address Unknown Phone Unavailable Care Team Providers Care Top Steep Tender Name Role Phone JONNATHAN HENRIQUEZ CP Unavailable Allergies, Adverse Reactions, Alerts Substance Reaction Event Type Cephalexin Info Not Available Drug Allergy Azithromycin Info Not Available Drug Allergy Problems Problem Type Condition Code Onset Dates Condition Statu s Assessment Hep C w/ coma, chronic B18.2 Activ e Problem Hepatitis C 070.70 Active Assessment Unspecified viral hepatitis C without hepatic coma B19 .20 Active Problem Family history of diabetes mellitus V18.0 Active Problem Asthma, unspecified, unspecified status 493.90 Active Problem Major depressive disorder, recurrent episode, mild 296 .31 Active Problem Essential hypertension, benign 401.1 Active Problem Routine general medical examination at [facility] V70.0 Active Problem Female stress incontinence 625.6 A ctive Problem Dysthymic disorder 300.4 Active Medications Medication Code System Code Instructions Start Date End Date Status Dosage Raul [facility] [address]-02 90-400 MG Orally Once a day Jan 29, 2015 1 tablet Results No Known Results Summary Purpose eClinicalWorks Submission
--- OUTSIDE RECORDS SUMMARY | 2019-06-20 10:34 | XMS REPORT ---
Author Author Shanice HENRIQUEZ Organization [facility] Address [address] [place] [address] Care Team Providers Care Lapeler Name Role Phone JONNATHAN HENRIQUEZ Unavailable PROBLEMS Type Condition ICD9-CM Code XUX60-HP Code Onset Dates Condition S tatus SNOMED Code Problem History of frequent urinary tract infections Z87.4 40 Active 1436813493954 Problem Herpes simplex type II infection B00.9 Active 236535391 Problem Overactive bladder N32.81 Active 2 11118151 Problem Family history of diabetes mellitus Z83.3 Active 288790049 Problem Depression F32.9 Active 37678297 Problem Hepatitis C B19.20 Active 45424254 Problem Hypertension I10 Active 8259594 3 Problem Asthma J45.909 Active 199533704 ALLERGIES No Information ENCOUNTERS Encounter Location Date Diagnosis [facility] [address] [place] [id number] [place] [phone] Feb, Dysuria R30.0 ; Urinary trac t infection without hematuria, site unspecified N39.0 ; Asthma J45.909 and Bronchitis J40 [facility] [address] [place] [id number] [address] [place] [address] Sep, [facility] [address] [place] [id number] [address] [place] [address] Aug, Wheezing R06.2 ; Hoarse voic e quality R49.0 ; Cough R05 and Encounter for screening mammogram for breast cancer Z12.31 [facility] [address] [place] [id number] [address] [place] [address] Jul, Pharyngitis due to other org anism J02.8 [facility] [address] [place] [id number] [address] [place] [address] Apr, Sore throat J02.9 ; Bronchit is J40 ; Herpes simplex type II infection B00.9 and Eustachian tube dysfunction, bilateral H69.83 [place] [address] [address] Feb, Acute non-recurrent maxillar y sinusitis J01.[address] [address] Feb, Asthma J45.909 [place] [address] [address] Jan, [address] [address] Jan, Acute non-recurrent maxillar y sinusitis J01.00 ; Hypertension I10 and History of hepatitis C virus infection Z86.[address] [address] Jan, Hep C w/ coma, chronic B18.2 [place] [address] [address] Jan, [address] [address] Oct, Osteoarthritis of both knees , unspecified osteoarthritis type M17.[address] [address] Sep, Pain in right knee M25.561 ; Pain in left knee M25.562 ; Other chronic pain G89.29 ; Pain in thoracic spine M54.6 ; Acute gastritis without hemorrhage, unspecified gastritis type K29.00 ; Urinary tract infection, site not specified N39.0 and Hematuria, unspecified R31.[address] [address] Jul, Hypertension I10 ; Bronchiti s J40 ; Unspecified viral hepatitis C without hepatic coma B19.20 ; Asthma J45.909 and Hep C w/ coma, chronic B18.2 [facility] [address] [facility] [id number] [address] [place] [address] June, [facility] [address] [facility] [id number] [address] [place] [address] May, Bronchitis J40 ; Asthma J45. 909 and Unspecified viral hepatitis C without hepatic coma B19.20 [facility] [address] [place] [id number] [place] [address] May, Unspecified viral hepatitis C without hepatic coma B19.20 [facility] [address] [place] [id number] [place] [address] May, Hypertension I10 ; Hepatitis C B19.20 and Encounter for screening mammogram for breast cancer Z12.31 [place] [address] [place] [id number] [place] [address] 18 Apr, 2015 [facility] [address] [place] [id number] [place] [address] Apr, Unspecified viral hepatitis C without hepatic coma B19.20 and Hep C w/ coma, chronic B18.2 [facility] [address] [place] [id number] [place] [address] Mar, [facility] [address] [place] [id number] [place] [address] Mar, Hypertension I10 and Unspeci fied viral hepatitis C without hepatic coma B19.20 [facility] [address] [facility] [id number] [address] [place] [address] Feb, [facility] [address] [facility] [id number] [address] [place] [address] Feb, Hypertension I10 [place] [address] [place] [id number] [place] [address] Feb, Hypertension I10 ; Hepatitis C B19.20 and History of frequent urinary tract infections Z87.440 [facility] [address] [place] [id number] [address] [place] [address] Feb, Unspecified viral hepatitis C without hepatic coma B19.20 and Hep C w/ coma, chronic B18.2 [facility] [address] [facility] [id number] [address] [place] [address] Feb, Hep C w/ coma, chronic B18.2 [facility] [address] [facility] [id number] [address] [place] [address] Jan, [facility] [address] [facility] [id number] [address] [place] [address] Jan, Unspecified viral hepatitis C without hepatic coma B19.20 and Hep C w/ coma, chronic B18.2 [facility] [address] [facility] [id number] [address] [place] [address] Jan, [facility] [address] [facility] [id number] [address] [place] [address] Jan, Sore throat J02.9 and Dysuri a R30.0 [facility] [address] [facility] [id number] [address] [place] [address] Nov, [facility] [address] [facility] [id number] [address] [place] [address] Nov, [facility] [address] [facility] [id number] [address] [place] [address] Nov, [facility] [address] [facility] [id number] [address] [place] [address] 08 Nov, 2014 Hepatitis C 070.70 [facility] [address] [facility] [id number] [address] [place] [address] 02 Nov, 2014 [facility] [address] [facility] [id number] [address] [place] [address] 16 Oct, 2014 Hepatitis C 070.70 [facility] [address] [facility] [id number] [address] [place] [address] 14 Oct, 2014 Upper respiratory infection 465.9 [facility] [address] [facility] [id number] [address] [place] [address] Jul, [facility] [address] [id number] [address] [place] [address] June, Hepatitis C 070.70 [facility] [address] [id number] [address] [place] [address] May, [facility] [address] [id number] [address] [place] [address] May, [facility] [address] [id number] [address] [place] [phone] Apr, [facility] [address] [id number] [address] [place] [address] Apr, [facility] [address] [id number] [address] [place] [address] Mar, [facility] [address] [id number] [address] [place] [phone] Mar, [facility] [address] [id number] [address] [place] [phone] Mar, [facility] [address] [id number] [address] [place] [address] Feb, [facility] [address] [id number] [address] [place] [address] Feb, [facility] [address] [id number] [address] [place] [address] Feb, [facility] [address] [id number] [address] [place] [address] Feb, IMMUNIZATIONS No Known Immunizations SOCIAL HISTORY Never Assessed REASON FOR VISIT Controlled Med Refill PLAN OF CARE VITAL SIGNS MEDICATIONS Medication Instructions Dosage Frequency Start Date End Date Duration S tatus Xanax 0.5 MG Orally Twice a day 1 tablet as needed 12h Feb, 28 days Active RESULTS No Results PROCEDURES No Known procedures INSTRUCTIONS MEDICATIONS ADMINISTERED No Known Medications MEDICAL (GENERAL) HISTORY Type Description Date Medical History Chronic Hep C Stage II Liver disease Genotype [address] Liver bx 2004 Relapsed after 18 mo of Interferon tx in May 2007 Repeat tx for 46 weeks completed August 2011.. Genotype 1a [facility] lab 05/2014 Medical History GERD Medical History Depression Medical History Asthma Medical History Rosacea Medical History Hypertension Surgical History cholecystectomy Surgical History section x 2 Surgical History partial hysterectomy Surgical History tonsillectomy and adenoidectomy Surgical History abcess in breast Surgical History carpal tunnel release in both wrists Hospitalization History surgeries
--- OUTSIDE RECORDS SUMMARY | 2019-06-20 10:34 | XMS REPORT ---
Author Author Shanice HOOD [facility] eClinicalWorks Address Unknown Phone Unavailable Care Team Providers Care Level Vial Inspector And Tester Name Role Phone VANESSA HOOD CP Unavailable [...] Medications Procedures Procedure Coding System Code Date COMPREHEN METABOLIC PANEL CPT-4 07320 June 09, 2015 VENIPUNCT, ROUTINE* CPT-4 22928 June 08 16 COMPLETE CBC W/AUTO DIFF WBC CPT-4 10191 May Results Name Result Date Reference Range Unit Abnormali ty Flag ROUTINE VENIPUNCTURE Summary Purpose eClinicalWorks Submission
--- OUTSIDE RECORDS SUMMARY | 2019-06-20 10:34 | XMS REPORT ---
Author Author Shanice HENRIQUEZ [facility] Address [address] [place] [address] Care Team Providers Care Calendering Machine Operator Name Role Phone JONNATHAN HENRIQUEZ Unavailable PROBLEMS Type Condition ICD9-CM Code [id number] Code Onset Dates Condition S tatus SNOMED Code Problem History of frequent urinary tract infections Z87.4 40 Active 9830623017092 Problem Herpes simplex type II infection B00.9 Active 824826773 Problem Depression F32.9 Active 44252498 Problem Family history of diabetes mellitus Z83.3 Active 808034183 Problem Hypertension I10 Active 3100814 3 Problem Hepatitis C B19.20 Active 27207718 Problem Asthma J45.909 Active 711823680 Problem Overactive bladder N32.81 Active 2 87967209 ALLERGIES Unknown Allergies SOCIAL HISTORY No smoking Hx information available PLAN OF CARE VITAL SIGNS MEDICATIONS Medication Instructions Dosage Frequency Start Date End Date Duration S segundo Atenolol 100 MG Orally Once a day 1 tablet 24h Feb, 30 days Active RESULTS No Results PROCEDURES No Known procedures IMMUNIZATIONS No Known Immunizations
--- OUTSIDE RECORDS SUMMARY | 2019-06-20 10:34 | XMS REPORT ---
Author Author Shanice GIBSON [facility] eClinicalWorks Address Unknown Phone Unavailable Care Team Providers Care Adzing And Boring Machine Helper Name Role Phone RANDELL GIBSON CP Unavailable Allergies No Known Allergies Problems Problem Type Condition Code Onset Dates Condition Statu s Problem Herpes simplex type II infection B00.9 Active Assessment Osteoarthritis of both knees, unspecified osteoa rthritis type M17.0 Active Problem Family history of diabetes mellitus Z83.3 Active Problem Asthma J45.909 Active Problem Depression F32.9 Active Problem Hepatitis C B19.20 Active Problem History of frequent urinary tract infections Z87.440 Active Problem Overactive bladder N32.81 Active Problem Hypertension I10 Active Medications No Known Medications Procedures Procedure Coding System Code Date Office Visit, Est Pt., Level 3 CPT-4 86383 S ept 2015 Vital Signs Date/Time: Nov 12, 2015 Blood Pressure Diastolic 86 mmHg Blood Pressure Systolic 140 mmHg Height 64 in Results No Known Results Summary Purpose eClinicalWorks Submission
--- OUTSIDE RECORDS SUMMARY | 2019-06-20 10:34 | XMS REPORT ---
Author Author Shanice HENRIQUEZ [facility] eClinicalWorks Address Unknown Phone Unavailable Care Team Providers Care Night Baker Name Role Phone JONNATHAN HENRIQUEZ CP Unavailable Allergies, Adverse Reactions, Alerts Substance Reaction Event Type Cephalexin Info Not Available Drug Allergy Azithromycin Info Not Available Drug Allergy Problems Problem Type Condition ICD-9 Code Onset Dates Condition Statu s Problem Hepatitis C 070.70 Active Assessment Upper respiratory infection 465.9 Active Problem Family history of diabetes mellitus V18.0 Active Problem Asthma, unspecified, unspecified status 493.90 Active Problem Major depressive disorder, recurrent episode, mild 296 .31 Active Problem Essential hypertension, benign 401.1 Active Problem [facility] V70.0 Active Problem Female stress incontinence 625.6 A ctive Problem Dysthymic disorder 300.4 Active Medications Medication Code System Code Instructions Start Date End Date Status Dosage Fluoxetine HCl [facility] 49891584587 20 MG TAKE ONE CAPSULE BY MOUTH ONCE DAILY Glucosamine Sulfate [facility] [address]-97 500 mg Mar 13, 2014 1 capsule by Oral route 1 time per day Zithromax Z-Wilfrido [facility] [address]-19 250 MG Orally Once a day OctNov 01, 2014 2 tablets on the first day, then 1 tablet daily for 4 days Flaxseed Oil [facility] [address] 1,000 mg Mar 13, 2014 by Oral route 1 time per day Symbicort [facility] 16395303164 80-4.5 MCG/ACT I NHALE TWO PUFFS BY MOUTH TWICE DAILY Cranberry [facility] [address] 400 mg Mar 13, 2014 1 ca psule by Oral route 1 time per day Vitamin D3 [facility] [address] 1,000 unit Mar 13, 2014 take one tablet orally daily Vitamin E [facility] [address]-76 200 unit Mar 13, 2014 1 capsule by Oral route 1 time per day Xanax [facility] [address]-06 0.5 mg Mar 13, 2014 1 ta blet by Oral route 2 times per day PRN Albuterol Sulfate [facility] [address]-23 90 mcg/actuation Mar 13, 2014 inhale 1 puff by Inhalation route as needed every 4-6 hours PRN SOB, wheezing Krill Oil [facility] [address] 1000 MG Orally no t defined Atenolol [facility] 60625126912 50 MG TAKE ONE TA BLET BY MOUTH ONCE DAILY Omeprazole [facility] [address]-36 20 mg Mar 13, 2014 ta ke 1 capsule (20 mg) by oral route once daily before a meal Procedures Procedure Coding System Code Date Office Visit, Est Pt., Level 3 CPT-4 18999 S ept 2014 Vital Signs Date/Time: Oct 27, 2014 Temperature 97.9 F Weight 220.5 lbs Height 64 in BMI 37.84 Index Blood Pressure Diastolic 90 mmHg Blood Pressure Systolic 152 mmHg Cardiac Monitoring Heart Rate 78 bpm Results No Known Results Summary Purpose eClinicalWorks Submission
--- OUTSIDE RECORDS SUMMARY | 2019-06-20 10:34 | XMS REPORT ---
Author Author Shanice HENRIQUEZ [facility] Address [address] [place] [address] Care Team Providers Care Intertype Operator Name Role Phone JONNATHAN HENRIQUEZ Unavailable PROBLEMS Type Condition ICD9-CM Code [id number] Code Onset Dates Condition S tatus SNOMED Code Problem History of frequent urinary tract infections Z87.4 40 Active 5890477679745 Problem Herpes simplex type II infection B00.9 Active 129882117 Problem Overactive bladder N32.81 Active 2 92371994 Problem Family history of diabetes mellitus Z83.3 Active 604591289 Problem Depression F32.9 Active 29485496 Problem Hepatitis C B19.20 Active 49173318 Problem Hypertension I10 Active 1434254 3 Problem Asthma J45.909 Active 388328195 ALLERGIES Unknown Allergies SOCIAL HISTORY No smoking Hx information available PLAN OF CARE VITAL SIGNS MEDICATIONS Medication Instructions Dosage Frequency Start Date End Date Duration S tatus Vitamin E 200 unit 1 capsule by Oral route 1 time per day Feb, Active Flaxseed Oil 1,000 mg by Oral route 1 time per day 2014 Active Premarin 0.625 MG/GM Vaginal twice weekly as directed Feb, 16 Active Omeprazole 20 mg take 1 capsule (20 m g) by oral route once daily before a meal Feb, Active Albuterol Sulfate 90 mcg/actuation inhal e 1 puff by Inhalation route as needed every 4-6 hours PRN SOB, wheezing Feb, Active Fluoxetine HCl 20 MG TAKE ONE CAPSULE BY MOUTH ONCE DAILY 90 Active Acyclovir 400 MG TAKE ONE TABLET BY MOUTH TWICE DAILY 30 Active Vitamin D3 1,000 unit take one tablet orally daily 2014 Active Krill Oil 1000 MG Active Glucosamine Sulfate 500 mg 1 capsule by Oral route 1 t luci per day Feb, Active Cranberry 400 mg 1 capsule by Oral route 1 time per day Feb, Active Xanax 0.5 MG 1 tablet by Oral route 2 times per day PRN Feb, Active Symbicort 80-4.5 MCG/ACT Inhalation Twice a day 2 puffs 12h 90 days Active Atenolol 100 MG Orally Once a day 1 tablet 24h 30 Active RESULTS No Results PROCEDURES No Known procedures IMMUNIZATIONS No Known Immunizations
--- OUTSIDE RECORDS SUMMARY | 2019-06-20 10:34 | XMS REPORT ---
Author Author Shanice HENRIQUEZ Organization eClinicalWorks Address Unknown Phone Unavailable Care Team Providers Care Emergency Management Program Specialist Name Role Phone JONNATHAN HENRIQUEZ CP Unavailable Allergies No Known Allergies Problems Problem Type Condition ICD-9 Code Onset Dates Condition Statu s Problem Hepatitis C 070.70 Active Assessment Hepatitis C 070.70 Active Problem Family history of diabetes mellitus V18.0 Active Problem Asthma, unspecified, unspecified status 493.90 Active Problem Major depressive disorder, recurrent episode, mild 296 .31 Active Problem Essential hypertension, benign 401.1 Active Problem Routine general medical examination at [facility] V70.0 Active Problem Female stress incontinence 625.6 A ctive Problem Dysthymic disorder 300.4 Active Medications No Known Medications Results No Known Results Summary Purpose eClinicalWorks Submission
--- OUTSIDE RECORDS SUMMARY | 2019-06-20 10:34 | XMS REPORT ---
Author Author Shanice HENRIQUEZ Organization eClinicalWorks Address Unknown Phone Unavailable Care Team Providers Care Coke Drawer Name Role Phone JONNATHAN HENRIQUEZ CP Unavailable [...] Problem Routine general medical examination at [facility] V70.0 Active Problem Female stress incontinence 625.6 A ctive Problem Dysthymic disorder 300.4 Active Medications No Known Medications Procedures Procedure Coding System Code Date COMPREHEN METABOLIC PANEL CPT-4 77794 Feb VENIPUNCT, ROUTINE* CPT-4 89159 Feb 26, 2015 COMPLETE CBC W/AUTO DIFF WBC CPT-4 14773 Feb 26, 2015 Results Name Result Date Reference Range Unit Abnormali ty Flag ROUTINE VENIPUNCTURE Summary Purpose eClinicalWorks Submission
--- OUTSIDE RECORDS SUMMARY | 2019-06-20 10:34 | XMS REPORT | Continuity of Care Document ---
Author Organization Unknown Address Unknown Phone Unavailable Allergies Active Description Code Type Severity Reaction Onset Reported/Identified Relationship to Patient Clinical Status Yes azithromycin Drug Allergy N/A N/A 03/13/2014 Yes cephalexin Drug Allergy N/A N/A 03/13/2014 Medications There is no data. Problems Date Dx Coded Attending Type Code Diagnosis Diagnosed By 03/13/2014 JONNATHAN HENRIQUEZ APRN 296.31 MO DEPRESSIVE RECURRENT MILD 03/13/2014 JONNATHAN HENRIQUEZ APRN 300.4 DYSTHYMIC DISORDER 03/13/2014 JONNATHAN HENRIQUEZ APRN 401.1 HYPERTENSION, BENIGN ESSENTIAL 03/13/2014 JONNATHAN HENRIQUEZ APRN 493.90 ASTHMA UNSPECIFIED 03/13/2014 JONNATHAN HENRIQUEZ APRN 625.6 STRESS INCONTINENCE FEMALE 03/13/2014 JONNATHAN HENRIQUEZ APRN V18.0 FAMILY HISTORY OF DIABETES MELLITUS 03/13/2014 JONNATHAN HENRIQUEZ APRN V70.0 EXAM - ROUTINE H&P 06/05/2014 JONNATHAN HENRIQUEZ APRN 054.9 HERPES SIMPLEX ANY SITE 06/05/2014 JONNATHAN HENRIQUEZ APRN 070.54 HEPATITIS C CHRONIC Procedures Code Description [place] [address] ROUT NEAL VENIPUNCTURE 06/09/2014 96001 URSTACIE Fernandez DRUG SCREEN (IN-HOUSE) 06/09/2014 Results Test Result Range CBC With Differential/Platelet - 6 12:46 WBC 3.9 x10E3/uL 3.4-10.8 RBC 4.49 x10E6/uL 3.77-5.28 Hemoglobin 12.6 g/dL 11.1-15.9 Hematocrit 39.0 % 34.0-46.6 MCV 87 fL 79-97 MCH 28.1 pg 26.6-33.0 MCHC 32.3 g/dL 31.5-35.7 RDW 16.8 % 12.3-15.4 Platelets 86 x10E3/uL 150-379 Neutrophils 64 % Lymphs 17 % Monocytes 15 % Eos 3 % Basos 1 % Neutrophils (Absolute) 2.5 x10E3/uL 1.4- 7.0 Lymphs (Absolute) 0.7 x10E3/uL 0.7-3.1 Monocytes(Absolute) 0.6 x10E3/uL 0.1-0.9 Eos (Absolute) 0.1 x10E3/uL 0.0-0.4 Baso (Absolute) 0.0 x10E3/uL 0.0-0.2 Immature Granulocytes 0 % Immature Grans (Abs) 0.0 x10E3/uL 0.0-0. 1 Hematology Comments: Note: Comp. Metabolic Panel (14) - 01/22/16 12 :46 Glucose, Serum 90 mg/dL 65-99 BUN 12 mg/dL 6-24 Creatinine, Serum 0.74 mg/dL 0.57-1.00 eGFR If NonAfricn Am 90 mL/min/1.73 >59 eGFR If Africn Am 103 mL/min/1.73 >5 9 BUN/Creatinine Ratio 16 9-23 Sodium, Serum 139 mmol/L 136-144 Potassium, Serum 4.2 mmol/L 3.5-5.2 Chloride, Serum 103 mmol/L 97-106 Carbon Dioxide, Total 21 mmol/L 18-29 Calcium, Serum 9.1 mg/dL 8.7-10.2 Protein, Total, Serum 6.9 g/dL 6.0-8.5 Albumin, Serum 3.9 g/dL 3.5-5.5 Globulin, Total 3.0 g/dL 1.5-4.5 A/G Ratio 1.3 1.1-2.5 Bilirubin, Total 0.6 mg/dL 0.0-1.2 Alkaline Phosphatase, S 64 IU/L 39-117 AST (SGOT) 24 IU/L 0-40 ALT (SGPT) 17 IU/L 0-32 CBC With Differential/Platelet - 7 15:07 WBC 4.0 x10E3/uL 3.4-10.8 RBC 4.48 x10E6/uL 3.77-5.28 Hemoglobin 11.7 g/dL 11.1-15.9 Hematocrit 36.2 % 34.0-46.6 MCV 81 fL 79-97 MCH 26.1 pg 26.6-33.0 MCHC 32.3 g/dL 31.5-35.7 RDW 16.8 % 12.3-15.4 Platelets 109 x10E3/uL 150-379 Neutrophils 61 % Lymphs 17 % Monocytes 15 % Eos 6 % Basos 1 % Neutrophils (Absolute) 2.5 x10E3/uL 1.4- 7.0 Lymphs (Absolute) 0.7 x10E3/uL 0.7-3.1 Monocytes(Absolute) 0.6 x10E3/uL 0.1-0.9 Eos (Absolute) 0.2 x10E3/uL 0.0-0.4 Baso (Absolute) 0.0 x10E3/uL 0.0-0.2 Immature Granulocytes 0 % Immature Grans (Abs) 0.0 x10E3/uL 0.0-0. 1 LIPID PANEL - 10/09/17 11:55 CHOLESTEROL, TOTAL 126 mg/dL <200 HDL CHOLESTEROL 33 mg/dL >50 TRIGLYCERIDES 79 mg/dL <150 LDL-CHOLESTEROL 77 mg/dL (calc) NRG CHOL/HDLC RATIO 3.8 (calc) <5.0 NON HDL CHOLESTEROL 93 mg/dL (calc) <130 CMP - 10/09/17 11:55 GLUCOSE 115 mg/dL 65-99 UREA NITROGEN (BUN) 10 mg/dL 7-25 CREATININE 0.72 mg/dL 0.50-0.99 eGFR NON-AFR. [facility] 91 mL/min/1.73m2 > OR = 60 eGFR 105 mL/min/1.73m2 > OR = 60 BUN/CREATININE RATIO NOT APPLICABLE (calc) 6-22 SODIUM 135 mmol/L 135-146 POTASSIUM 4.0 mmol/L 3.5-5.3 CHLORIDE 105 mmol/L 98-110 CARBON DIOXIDE 23 mmol/L 20-32 CALCIUM 8.9 mg/dL 8.6-10.4 PROTEIN, TOTAL 7.2 g/dL 6.1-8.1 ALBUMIN 3.8 g/dL 3.6-5.1 GLOBULIN 3.4 g/dL (calc) 1.9-3.7 ALBUMIN/GLOBULIN RATIO 1.1 (calc) 1.0-2. 5 BILIRUBIN, TOTAL 0.8 mg/dL 0.2-1.2 ALKALINE PHOSPHATASE 62 U/L 33-130 AST 21 U/L 10-35 ALT 12 U/L 6-29 CMP - 05/23/18 12:10 GLUCOSE 116 mg/dL 65-99 UREA NITROGEN (BUN) 10 mg/dL 7-25 CREATININE 0.73 mg/dL 0.50-0.99 eGFR NON-AFR. [facility] 89 mL/min/1.73m2 > OR = 60 eGFR 103 mL/min/1.73m2 > OR = 60 BUN/CREATININE RATIO NOT APPLICABLE (calc) 6-22 SODIUM 137 mmol/L 135-146 POTASSIUM 4.0 mmol/L 3.5-5.3 CHLORIDE 104 mmol/L 98-110 CARBON DIOXIDE 26 mmol/L 20-32 CALCIUM 8.8 mg/dL 8.6-10.4 PROTEIN, TOTAL 6.9 g/dL 6.1-8.1 ALBUMIN 3.8 g/dL 3.6-5.1 GLOBULIN 3.1 g/dL (calc) 1.9-3.7 ALBUMIN/GLOBULIN RATIO 1.2 (calc) 1.0-2. 5 BILIRUBIN, TOTAL 0.8 mg/dL 0.2-1.2 ALKALINE PHOSPHATASE 55 U/L 33-130 AST 24 U/L 10-35 ALT 14 U/L 6- PLATELET ESTIMATION - 05/08/19 12:07 PLATELET ESTIMATION DECREASED ADEQUATE Encounters ACCT No. Visit Date/Time Discharge Status Pt. Type Provider Facility Loc./Unit Complaint [id number] 06/05/2014 11:35:00 06/05/2014 23:59: 59 CLS Outpatient JONNATHAN HENRIQUEZ APRN [id number] 09/13/2016 08:07:00 Document Registration [id number] 01/09/2019 10:40:00 01/09/2019 23:59:5 9 CLS Outpatient JONNATHAN HENRIQUEZ APRN [facility] [id number] 05/08/2019 11:20:00 Document Registration [id number] 05/23/2018 10:40:00 Document Registration [id number] 10/09/2017 11:00:00 Document Registration [id number] 06/12/2019 10:08:00 020 23:59:59 CLS Outpatient BILLY HERRING, GUTIERREZ [facility] [id number] 06/20/2019 11:45:00 P EN Preadmit BILLY HERRING, GUTIERREZ [facility] RAD PANCYTOPENIA [id number] 01/24/2016 07:05:00 Document Registration
--- OUTSIDE RECORDS SUMMARY | 2019-06-20 10:34 | XMS REPORT ---
Author Author Shanice HENRIQUEZ Organization eClinicalWorks Address Unknown Phone Unavailable Care Team Providers Care Customer Care Manager Name Role Phone JONNATHAN HENRIQUEZ CP [...] Active Problem Routine general medical examination at [facility] V70.0 Active Problem Female stress incontinence 625.6 A ctive Problem Dysthymic disorder 300.4 Active Medications No Known Medications Results No Known Results Summary Purpose eClinicalWorks Submission
--- OUTSIDE RECORDS SUMMARY | 2019-06-20 10:34 | XMS REPORT ---
Author Author Shanice HENRIQUEZ [facility] Address [address] [place] [address] Care Team Providers Care Bull Gang Worker Name Role Phone JONNATHAN HENRIQUEZ Unavailable PROBLEMS Type Condition ICD9-CM Code [id number] Code Onset Dates Condition S tatus SNOMED Code Problem History of frequent urinary tract infections Z87.4 40 Active 7673023127594 Problem Herpes simplex type II infection B00.9 Active 183394190 Problem Depression F32.9 Active 38167233 Problem Family history of diabetes mellitus Z83.3 Active 342862915 Problem Hypertension I10 Active 8023910 3 Problem Hepatitis C B19.20 Active 89679683 Problem Asthma J45.909 Active 345423137 Problem Overactive bladder N32.81 Active 2 89955674 ALLERGIES Substance Reaction Event Type Date Status Cephalexin Unknown Drug Allergy Jan, Active Azithromycin Unknown Drug Allergy Jan, Active SOCIAL HISTORY No smoking Hx information available PLAN OF CARE Activity Details Follow Up 6 Months Reason:BP VITAL SIGNS Height 64 in 2016-02-01 Weight 223.4 lbs 2016-02-01 Temperature 98.1 degrees Fahrenheit 2016-02-01 Heart Rate 62 bpm 2016-02-01 Respiratory Rate 18 2016-02-01 BMI 38.34 kg/m2 2016-02-01 Blood pressure systolic 138 mmHg 2016-02-01 Blood pressure diastolic 84 mmHg 2016-02-01 MEDICATIONS Medication Instructions Dosage Frequency Start Date End Date Duration S tatus Symbicort 80-4.5 MCG/ACT INHALE TWO PUFFS BY MOUTH TWICE DAILY Active Flaxseed Oil 1,000 mg by Oral route 1 time per day 2014 Active Vitamin E 200 unit 1 capsule by Oral route 1 time per day Feb, Active Premarin 0.625 MG/GM Vaginal twice weekly as directed Feb, 16 Active Krill Oil 1000 MG Active Fluoxetine HCl 20 MG TAKE ONE CAPSULE BY MOUTH ONCE DAILY 90 Active Atenolol 100 MG Orally Once a day 1 tablet 24h Feb, 30 days Active Xanax 0.5 MG 1 tablet by Oral route 2 times per day PRN Feb, Active Vitamin D3 1,000 unit take one tablet orally daily 2014 Active Glucosamine Sulfate 500 mg 1 capsule by Oral route 1 t luci per day Feb, Active Cranberry 400 mg 1 capsule by Oral route 1 time per day Feb, Active Omeprazole 20 mg take 1 capsule (20 m g) by oral route once daily before a meal Feb, Active Zithromax Z-Wilfrido 250 MG Orally Once a day 2 tablets on the first day, then 1 tablet daily for 4 days 24h Jan, Jan, 5 day(s) Acti ve Albuterol Sulfate 90 mcg/actuation inhal e 1 puff by Inhalation route as needed every 4-6 hours PRN SOB, wheezing Feb, Active Acyclovir 400 MG TAKE ONE TABLET BY MOUTH TWICE DAILY 30 Active RESULTS No Results PROCEDURES Procedure Date Ordered Related Diagnosis Body Site Office Visit, Est Pt., Level 3 Feb 01, 2016 IMMUNIZATIONS No Known Immunizations
--- OUTSIDE RECORDS SUMMARY | 2019-06-20 10:34 | XMS REPORT ---
Author Author Shanice HOOD Organization eClinicalWorks Address Unknown Phone Unavailable Care Team Providers Care Solar Thermal Installer Name Role Phone VANESSA HOOD CP Unavailable Allergies No Known Allergies Problems Problem Type Condition Code Onset Dates Condition Statu s Problem Hepatitis C 070.70 Active Problem Family history of diabetes mellitus V18.0 Active Problem Asthma, unspecified, unspecified status 493.90 Active Problem Major depressive disorder, recurrent episode, mild 296 .31 Active Problem Essential hypertension, benign 401.1 Active Problem Routine general medical examination at [facility] V70.0 Active Problem Female stress incontinence 625.6 A ctive Problem Dysthymic disorder 300.4 Active Medications Medication Code System Code Instructions Start Date End Date Status Dosage Raul [facility] [address]-04 90-400 MG Orally Once a day Feb 04, 2015 1 tablet Results No Known Results Summary Purpose eClinicalWorks Submission
--- OUTSIDE RECORDS SUMMARY | 2019-06-20 10:34 | XMS REPORT ---
Author Author Shanice HENRIQUEZ [facility] eClinicalWorks Address Unknown Phone Unavailable Care Team Providers Care Online Advertising Manager Name Role Phone JONNATHAN HENRIQUEZ CP Unavailable Allergies, Adverse Reactions, Alerts Substance Reaction Event Type Cephalexin Info Not Available Drug Allergy Azithromycin Info Not Available Drug Allergy Problems Problem Type Condition Code Onset Dates Condition Statu s Assessment Dysuria R30.0 Active Problem Hepatitis C 070.70 Active Assessment Sore throat J02.9 Active Problem Family history of diabetes mellitus [...] Instructions Start Date End Date Status Dosage Vitamin E [facility] [address]-95 200 unit Mar 13, 2014 1 capsule by Oral route 1 time per day Vitamin D3 [facility] [address] 1,000 unit Mar 13, 2014 take one tablet orally daily Acyclovir [facility] [address]-82 400 MG Twice a day TAKE ONE TABLET BY MOUTH Albuterol Sulfate [facility] [address]-99 90 mcg/actuation Mar 13, 2014 inhale 1 puff by Inhalation route as needed every 4-6 hours PRN SOB, wheezing Xanax [facility] [address]-90 0.5 MG Mar 13, 2014 1 ta blet by Oral route 2 times per day PRN Atenolol [facility] 67189248434 50 MG TAKE ONE TA BLET BY MOUTH ONCE DAILY (MUST HAVE FOLLOW-UP APPOINTMENT!!!) Fluoxetine HCl [facility] [address]-90 20 MG UMA E ONE CAPSULE BY MOUTH ONCE DAILY Krill Oil [facility] [address] 1000 MG Orally no t defined Zithromax Z-Wilfrido [facility] [address]-17 250 MG Orally Once a day Jan 22, 2015 Jan 27, 2015 2 tablets on the first day, then 1 tablet daily for 4 days Omeprazole [facility] [address]-53 20 mg Mar 13, 2014 ta ke 1 capsule (20 mg) by oral route once daily before a meal Flaxseed Oil [facility] [address] 1,000 mg Mar 13, 2014 by Oral route 1 time per day Glucosamine Sulfate [facility] [address]-45 500 mg Mar 13, 2014 1 capsule by Oral route 1 time per day Symbicort [facility] [address]-74 80-4.5 MCG/ACT INHALE TWO PUFFS BY MOUTH TWICE DAILY Procedures Procedure Coding System Code Date URINE CULTURE/COLONY COUNT CPT-4 37454 Jan 132014 URINALYSIS, AUTO, W/O SCOPE CPT-4 30707 Jan 22, 2015 STREP A ASSAY W/OPTIC CPT-4 97850 Jan 22 Office Visit, Est Pt., Level 3 CPT-4 74332 D 2014 Vital Signs Date/Time: Jan 22, 2015 Temperature 96.6 F Weight 223.5 lbs Height 64 in BMI 38.36 Index Blood Pressure Diastolic 80 mmHg Blood Pressure Systolic 130 mmHg Cardiac Monitoring Heart Rate 80 bpm Results Name Result Date Reference Range Unit Abnormali ty Flag CULTURE, URINE ----Urine Culture, Routine Final report [id number] A STREP A (IN HOUSE) ----STREP A negative 20150122 ----Control + 20150122 ----Lot # [id number] [id number] ----Exp date 01/13/201620150122 UA LONG DIP (IN HOUSE) ----VIOLETA negative 20150122 ----GLU negative 20150122 ----SG 1.005 20150122 ----KET negative 20150122 ----pH 5.5 20150122 ----Protein negative 20150122 ----BLO negative 20150122 ----[place] trace 20150122 ----Color yellow 20150122 ----Odor no 20150122 ----Exp date 20150122 ----URO 0.2 20150122 ----NIT negative 20150122 ----Clarity clear 20150122 ----Lot # [id number] [id number] Summary Purpose eClinicalWorks Submission
[2019-06-20] MEDS ORDERED: LIDOCAINE 1% INJ 20 ML 20 ML VIAL ONE (10:38)
[2019-06-20] MEDS ORDERED: fentaNYL INJECTION 100 MCG/2 ML AMP ONE (10:38)
[2019-06-20] MEDS ORDERED: NS IV 1000 ML 1,000 ML ONE (10:38)
[2019-06-20] MEDS ORDERED: MIDAZOLAM 2 MG/2 ML (VERSED) VIAL ONE (10:38)
[2019-06-20 10:43] LABS: ABSOLUTE RETIC # 53 10e9/L (24-90); BASOPHILS % (AUTO) 1 % (0-10); EOSINOPHILS # (AUTO) 0.1 10^3/uL (0.0-0.3); EOSINOPHILS % (AUTO) 5 % (0-10); HEMATOCRIT 31 % (35-52); LYMPHOCYTES # (AUTO) 0.4 X 10^3 (1.0-4.0); LYMPHOCYTES % (AUTO) 15 % (12-44); MEAN CORPUSCULAR HEMOGLOBIN 20 PG (25-34); MEAN CORPUSCULAR HGB CONC 29 G/DL (32-36); MEAN CORPUSCULAR VOLUME 68 FL (80-99); MONOCYTES # (AUTO) 0.4 X 10^3 (0.0-1.0); MONOCYTES % (AUTO) 14 % (0-12); NEUTROPHILS # (AUTO) 1.9 X 10^3 (1.8-7.8); NEUTROPHILS % (AUTO) 66 % (42-75); PLATELET COUNT 104 10^3/uL (130-400); RED CELL DISTRIBUTION WIDTH 23.2 % (10.0-14.5); RETICULOCYTE % 1.17 % (0.50-2.40); WHITE BLOOD COUNT 2.9 10^3/uL (4.3-11.0)
[2019-06-20 10:54] LABS: INR 1.5 (0.8-1.4)
[2019-06-20] MEDS ORDERED: ATEN100T PO (11:00)
[2019-06-20] MEDS ORDERED: ACET325T38 PO (11:00)
[2019-06-20] MEDS ORDERED: RT-ALBUINH INH (11:00)
[2019-06-20] MEDS ORDERED: CALC600T80 PO (11:00)
[2019-06-20] MEDS ORDERED: OMG1KC PO (11:00)
[2019-06-20] MEDS ORDERED: GLUC-116 PO (11:00)
[2019-06-20] MEDS ORDERED: ACYC400T PO (11:00)
[2019-06-20] MEDS ORDERED: FOLI0.4T2 PO (11:00)
[2019-06-20] MEDS ORDERED: GUAI600T43 PO (11:00)
[2019-06-20] MEDS ORDERED: FLUO20CA46 PO (11:00)
[2019-06-20] MEDS: NS IV 1000 ML 1,000 ML IV STA (11:53)
[2019-06-20] MEDS: fentaNYL INJECTION 100 MCG/2 ML AMP IVP ONE (11:55)
[2019-06-20] MEDS: MIDAZOLAM 2 MG/2 ML (VERSED) VIAL IVP ONE (11:55)
[2019-06-20] MEDS: LIDOCAINE 1% INJ 20 ML 20 ML VIAL INJ ONE (11:55)
[2019-06-20] MEDS ORDERED: HYDROcodone/APAP 5 MG/325 MG (LORTAB) TAB PO PRN (12:15)
--- NOTE | 2019-06-20 12:32 | Pre-Op Note & Conscious Sedat ---
Pre-Operative Progress Note H&P Reviewed The H&P was reviewed, patient examined and no changes noted. Date H&P Reviewed: June 20, 2019 Time H&P Reviewed: 11:00 Pre-Op Diagnosis: pancytopenia Conscious Sedation Pre-Proced Time 11:00 ASA Score 2 For ASA 3 and 4: Consider anesthesia and medical clearance. Also, for patients with a history of failed moderate sedation consider anesthesia. Airway Lungs Heart ASA score ASA 1: a normal healthy patient ASA 2: a patient with a mild systemic disease (mid diabetes, controlled hypertension, obesity ASA 3: a patient with a severe systemic disease that limits activity (angina, COPD, prior Myocardial infarction) ASA 4: a patient with an incapacitating disease that is a constant threat to life (CHF, renal failure) ASA 5: a moribund patient not expected to survive 24 hrs. (ruptured aneurysm) ASA 6: a declared brain- patient whose organs are being harvested. For emergent operations, add the letter E after the classification Mallampati Classification Grade 2 Sedation Plan Analgesia, Amnesia, Plan communicated to team members, Discussed options with patient/fam, Discussed risks with patient/fam The patient is an appropriate candidate to undergo the planned procedure, sedation, and anesthesia. The patient immediately re-assessed prior to indication. DALY YOUNGBLOOD MD June 20, 2019 12:32
[2019-06-20 12:34] LABS: LYMPHOCYTES % (MANUAL) 15 %; NEUTROPHILS % (MANUAL) 72 %
[2019-06-20 12:35] LABS: ANISOCYTOSIS MODERATE; BASOPHILS % (MANUAL) 0 %; EOSINOPHILS % (MANUAL) 6 %; HYPOCHROMASIA MODERATE; MICROCYTOSIS MODERATE; MONOCYTES % (MANUAL) 6 %; POIKILOCYTOSIS SLIGHT; REACTIVE LYMPHOCYTES 1 %; TARGET CELLS SLIGHT
[2019-06-20 12:36] LABS: ELLIPT/OVALOCYTES SLIGHT
--- NOTE | 2019-06-20 12:40 | Diagnostic Imaging Report ---
INDICATION: Pancytopenia. The patient presents for CT-guided bone marrow biopsy. DETAILS OF PROCEDURE: Patient was brought to the CT suite and placed on table in prone position. Axial imaging through the pelvis was performed to evaluate appropriate entry site. The procedure was performed utilizing conscious sedation with radiology nursing in constant patient monitoring. Patient was administered total of 100 mcg of fentanyl intravenously and 1 mg Versed intravenously. Total procedure time was 7 minutes. The low back was prepped and draped in usual sterile fashion. Small amount of 1% lidocaine was utilized for local anesthesia. Bone marrow needle was advanced and placed with its tip along the posterior cortex of the right iliac bone. The needle was advanced through the cortex utilizing the bone marrow drill. Two bone marrow aspirates were then obtained. Bone marrow drill was then used to obtain a core biopsy of the bone marrow. Needle was withdrawn and hemostasis was obtained. Patient tolerated the procedure well and left department in stable condition. Limited imaging through the pelvis does show a large mixed solid and cystic mass within the pelvis, perhaps ovarian. This measures at least 16-17 cm transverse dimension. IMPRESSION: 1. Successful CT-guided bone marrow aspiration and biopsy, utilizing conscious sedation. 2. Large mixed solid and cystic mass within the pelvis, perhaps ovarian. This was only partially included on this study. Additional imaging including ultrasound or CT would be recommended for better characterization, if not already performed. Dictated by: Dictated on workstation # [id number]
== END 2019-06-20 13:55 | disposition home or self-care (01) ==
LOC: RAD 09:55 → SDC 12:14 → RAD 13:55
PROVIDERS: ATTEND Internal Medicine Hematology & Oncology
DX: D61.818 Other pancytopenia (principal); M19.90 Unspecified osteoarthritis, unspecified site; E66.9 Obesity, unspecified; R19.00 Intra-abdominal and pelvic swelling, mass and lump, unspecified site; Z88.1 Allergy status to other antibiotic agents; Z88.8 Allergy status to other drugs, medicaments and biological substances; Z79.899 Other long term (current) drug therapy; Z90.89 Acquired absence of other organs; Z90.710 Acquired absence of both cervix and uterus; Z86.19 Personal history of other infectious and parasitic diseases; Z68.35 Body mass index [BMI] 35.0-35.9, adult; Z90.6 Acquired absence of other parts of urinary tract; Z80.9 Family history of malignant neoplasm, unspecified
CPT/HCPCS: 36415; 38222; 77012; 85007; 85027; 85045; 85610; 85730; 99156

== ENCOUNTER 2019-08-28 12:48 | Outpatient (RCR) | payer OTHER ==
[2019-06-12 11:08] LABS: BASOPHILS % (AUTO) 0 % (0-10); EOSINOPHILS # (AUTO) 0.1 10^3/uL (0.0-0.3); EOSINOPHILS % (AUTO) 4 % (0-10); HEMATOCRIT 27 % (35-52); LYMPHOCYTES # (AUTO) 0.4 X 10^3 (1.0-4.0); LYMPHOCYTES % (AUTO) 16 % (12-44); MEAN CORPUSCULAR HEMOGLOBIN 20 PG (25-34); MEAN CORPUSCULAR HGB CONC 29 G/DL (32-36); MEAN CORPUSCULAR VOLUME 68 FL (80-99); MONOCYTES # (AUTO) 0.4 X 10^3 (0.0-1.0); MONOCYTES % (AUTO) 17 % (0-12); NEUTROPHILS # (AUTO) 1.6 X 10^3 (1.8-7.8); NEUTROPHILS % (AUTO) 63 % (42-75); PLATELET COUNT 71 10^3/uL (130-400); RED CELL DISTRIBUTION WIDTH 22.2 % (10.0-14.5); WHITE BLOOD COUNT 2.6 10^3/uL (4.3-11.0)
[2019-06-12 11:18] LABS: ALANINE AMINOTRANSFERASE 10 U/L (0-55); ALBUMIN 3.5 GM/DL (3.2-4.5); ALKALINE PHOSPHATASE 62 U/L (40-136); BILIRUBIN,TOTAL 0.5 MG/DL (0.1-1.0); BUN/CREATININE RATIO 20; CALCIUM 8.7 MG/DL (8.5-10.1); CARBON DIOXIDE 22 MMOL/L (21-32); CHLORIDE 108 MMOL/L (98-107); CREATININE SERUM 0.74 MG/DL (0.60-1.30); GFR ESTIMATED > 60; GLUCOSE 100 MG/DL (70-105); POTASSIUM 3.9 MMOL/L (3.6-5.0); SODIUM 136 MMOL/L (135-145); TOTAL PROTEIN 6.8 GM/DL (6.4-8.2)
[2019-07-03 13:31] LABS: BASOPHILS % (AUTO) 0 % (0-10); EOSINOPHILS # (AUTO) 0.1 10^3/uL (0.0-0.3); EOSINOPHILS % (AUTO) 6 % (0-10); HEMATOCRIT 28 % (35-52); HEMOGLOBIN 8.3 G/DL (11.5-16.0); LYMPHOCYTES # (AUTO) 0.4 X 10^3 (1.0-4.0); LYMPHOCYTES % (AUTO) 18 % (12-44); MEAN CORPUSCULAR HEMOGLOBIN 21 PG (25-34); MEAN CORPUSCULAR HGB CONC 30 G/DL (32-36); MEAN CORPUSCULAR VOLUME 68 FL (80-99); MEAN PLATELET VOLUME 8.7 FL (7.4-10.4); MONOCYTES # (AUTO) 0.4 X 10^3 (0.0-1.0); MONOCYTES % (AUTO) 15 % (0-12); NEUTROPHILS # (AUTO) 1.4 X 10^3 (1.8-7.8); NEUTROPHILS % (AUTO) 60 % (42-75); PLATELET COUNT 77 10^3/uL (130-400); RED CELL DISTRIBUTION WIDTH 23.2 % (10.0-14.5); WHITE BLOOD COUNT 2.3 10^3/uL (4.3-11.0)
[2019-07-03 13:50] LABS: ALANINE AMINOTRANSFERASE 15 U/L (0-55); ALBUMIN 3.6 GM/DL (3.2-4.5); ALKALINE PHOSPHATASE 57 U/L (40-136); BILIRUBIN,TOTAL 0.6 MG/DL (0.1-1.0); BUN/CREATININE RATIO 21; CARBON DIOXIDE 23 MMOL/L (21-32); CHLORIDE 107 MMOL/L (98-107); CREATININE SERUM 0.76 MG/DL (0.60-1.30); GFR ESTIMATED > 60; GLUCOSE 96 MG/DL (70-105); POTASSIUM 4.1 MMOL/L (3.6-5.0); SODIUM 138 MMOL/L (135-145)
[~2019-08-28 12:48] MED LIST: ACET325T38 PO; ACYC400T PO; ATEN100T PO; CALC600T80 PO; FERRIC CARBOXYMALTOSE (CANCER) 750 MG in NS (IVPB) CANCER CENTER 250 ML IV SCH; FLUO20CA46 PO; FOLI0.4T2 PO; GLUC-116 PO; GUAI600T43 PO; OMG1KC PO; RT-ALBUINH INH
[2019-08-28 13:01] LABS: BASOPHILS % (AUTO) 0 % (0-10); EOSINOPHILS # (AUTO) 0.2 10^3/uL (0.0-0.3); EOSINOPHILS % (AUTO) 7 % (0-10); HEMATOCRIT 39 % (35-52); HEMOGLOBIN 12.4 G/DL (11.5-16.0); LYMPHOCYTES # (AUTO) 0.5 X 10^3 (1.0-4.0); LYMPHOCYTES % (AUTO) 17 % (12-44); MEAN CORPUSCULAR HEMOGLOBIN 27 PG (25-34); MEAN CORPUSCULAR HGB CONC 32 G/DL (32-36); MEAN CORPUSCULAR VOLUME 83 FL (80-99); MONOCYTES # (AUTO) 0.4 X 10^3 (0.0-1.0); MONOCYTES % (AUTO) 13 % (0-12); NEUTROPHILS # (AUTO) 1.8 X 10^3 (1.8-7.8); NEUTROPHILS % (AUTO) 63 % (42-75); PLATELET COUNT 67 10^3/uL (130-400); WHITE BLOOD COUNT 2.9 10^3/uL (4.3-11.0)
[2019-08-28 13:27] LABS: ALANINE AMINOTRANSFERASE 25 U/L (0-55); ALBUMIN 3.6 GM/DL (3.2-4.5); ALKALINE PHOSPHATASE 71 U/L (40-136); BILIRUBIN,TOTAL 0.6 MG/DL (0.1-1.0); BUN/CREATININE RATIO 15; CALCIUM 8.7 MG/DL (8.5-10.1); CARBON DIOXIDE 25 MMOL/L (21-32); CHLORIDE 110 MMOL/L (98-107); CREATININE SERUM 0.67 MG/DL (0.60-1.30); GFR ESTIMATED > 60; GLUCOSE 91 MG/DL (70-105); SODIUM 140 MMOL/L (135-145)
== END 2019-09-10 | disposition home or self-care (01) ==
LOC: ONC 12:48
PROVIDERS: ATTEND Internal Medicine Hematology & Oncology
DX: D61.818 Other pancytopenia (principal); Z90.710 Acquired absence of both cervix and uterus
CPT/HCPCS: 80053; 85025; G0463; 82728; 83540; 96365; 99213; 99214

== ENCOUNTER → 2019-12-06 | Outpatient (CLI) | payer OTHER ==
[~2019-12-06] MED LIST changes: -FERRIC CARBOXYMALTOSE (CANCER) 750 MG in NS (IVPB) CANCER CENTER 250 ML IV SCH
--- NOTE | 2019-12-06 12:26 | Diagnostic Imaging Report ---
EXAMINATION: CT Abdomen and Pelvis with intravenous contrast. TECHNIQUE: Multiple contiguous axial images were obtained through the abdomen and pelvis after the uneventful administration of intravenous contrast. All CT scans use one or more of the following dose optimizing techniques: automated exposure control, MA and/or KvP adjustment based on a patient size and exam type, or iterative reconstruction. HISTORY: Pancytopenia. COMPARISON: None available. FINDINGS: Limited views of the lower thorax are unremarkable. Liver is cirrhotic. 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 Spleen is enlarged. There is no biliary ductal dilation. Gallbladder is normal. Pancreas is normal. Adrenal glands are normal. The kidneys are normal. There is no hydronephrosis. Urinary bladder is normal. There is a very large cystic and solid neoplasm in the pelvis measuring 15 x 13 cm. There is a large septation and a 5.8 x 2.8 cm solid nodule peripherally. This is predominately centered in the right adnexa. The left ovary is enlarged and composed mostly of soft tissue measuring 5.6 x 3.8 cm. Visualized bowel is normal in caliber without obstruction or inflammation. Mild fat-containing ventral hernia. No free fluid or air. No abdominal or pelvic lymphadenopathy. Aorta is normal in caliber without aneurysm. There are no suspicious osseous lesions. IMPRESSION: 1. Cirrhotic liver with paraesophageal varices and splenomegaly. 2. Large cystic and solid right adnexal neoplasm concerning for an ovarian epithelial malignancy. The left ovary is also enlarged. Gynecologic evaluation is recommended. Dictated by: Dictated on workstation # [id number]
== END ==
LOC: RAD 11:01
PROVIDERS: ATTEND Internal Medicine Hematology & Oncology
DX: C56.1 Malignant neoplasm of right ovary (principal); N83.8 Other noninflammatory disorders of ovary, fallopian tube and broad ligament; I85.10 Secondary esophageal varices without bleeding; D73.2 Chronic congestive splenomegaly; Z86.2 Personal history of diseases of the blood and blood-forming organs and certain disorders involving the immune mechanism
CPT/HCPCS: 74177

== ENCOUNTER 2019-12-11 13:29 | Outpatient (RCR) | payer OTHER ==
[2019-11-28 16:13] LABS: BASOPHILS % (AUTO) 0 % (0-10); EOSINOPHILS # (AUTO) 0.1 10^3/uL (0.0-0.3); EOSINOPHILS % (AUTO) 4 % (0-10); HEMATOCRIT 38 % (35-52); HEMOGLOBIN 12.1 g/dL (11.5-16.0); LYMPHOCYTES # (AUTO) 0.4 10^3/uL (1.0-4.0); LYMPHOCYTES % (AUTO) 15 % (12-44); MEAN CORPUSCULAR HEMOGLOBIN 28 pg (25-34); MEAN CORPUSCULAR HGB CONC 32 g/dL (32-36); MEAN CORPUSCULAR VOLUME 87 fL (80-99); MEAN PLATELET VOLUME 10.5 fL (9.0-12.2); MONOCYTES # (AUTO) 0.4 10^3/uL (0.0-1.0); MONOCYTES % (AUTO) 15 % (0-12); NEUTROPHILS # (AUTO) 1.7 10^3/uL (1.8-7.8); NEUTROPHILS % (AUTO) 66 % (42-75); PLATELET COUNT 68 10^3/uL (130-400); WHITE BLOOD COUNT 2.6 10^3/uL (4.3-11.0)
[2019-11-28 16:31] LABS: ALANINE AMINOTRANSFERASE 18 U/L (0-55); ALBUMIN 3.5 GM/DL (3.2-4.5); ALKALINE PHOSPHATASE 56 U/L (40-136); BILIRUBIN,TOTAL 0.9 MG/DL (0.1-1.0); BUN/CREATININE RATIO 17; CALCIUM 8.7 MG/DL (8.5-10.1); CARBON DIOXIDE 21 MMOL/L (21-32); CHLORIDE 107 MMOL/L (98-107); GFR ESTIMATED > 60; GLUCOSE 93 MG/DL (70-105); POTASSIUM 3.9 MMOL/L (3.6-5.0); SODIUM 137 MMOL/L (135-145)
[2019-11-29 20:51] LABS: HEPATITIS C ANTIBODY C Reactive (Non-Reactive)
[2020-01-07] MEDS ORDERED: RT-ALBUINH IH (12:45)
[2020-01-07] MEDS ORDERED: CALC-50 PO (12:46)
[2020-01-07] MEDS ORDERED: SALM1CAP4 PO (12:46)
[2020-01-07] MEDS ORDERED: FAMO-119 PO (12:46)
[2020-01-29] MEDS ORDERED: OXC5T PO (08:35)
[2020-01-29] MEDS ORDERED: DCS100C PO (08:35)
[2020-01-29] MEDS ORDERED: IBUP-844 PO (08:35)
== END 2020-02-26 | disposition home or self-care (01) ==
LOC: ONC 13:29
PROVIDERS: ATTEND Internal Medicine Hematology & Oncology
DX: D61.818 Other pancytopenia (principal); I10 Essential (primary) hypertension; Z86.19 Personal history of other infectious and parasitic diseases; Z90.710 Acquired absence of both cervix and uterus; Z86.59 Personal history of other mental and behavioral disorders; Z90.49 Acquired absence of other specified parts of digestive tract
CPT/HCPCS: 80053; 80074; 82728; 83540; 85025; 99213

== ENCOUNTER → 2019-12-13 | Outpatient (CLI) | payer SELFPAY ==
--- NOTE | 2019-12-13 14:36 | Diagnostic Imaging Report ---
PROCEDURE: US Non-ob pelvis comp/trans. TECHNIQUE: Multiple realtime grayscale images were obtained of the pelvis in various projections endovaginally. Transabdominal imaging was also performed. INDICATION: Pelvic mass on recent CT. Hysterectomy. CORRELATION STUDY: CT 12/06/2019 FINDINGS: Uterus is not visualized and reportedly surgically absent. A normal right ovary is not visualized. There is a large right adnexal mass. Somewhat difficult to quantify but measures approximately 19 cm. There is echogenic thin septation present. Question some debris. The noted solid component on CT could not be well seen on ultrasound. What appears to be the left ovary is approximately 2.3 x 1.0 x 1.3 cm. No significant pelvic fluid. IMPRESSION: 1. Large, approximately 19 cm pelvic mass centered in the right adnexa. This finding should be considered secondary to an ovarian epithelial neoplasm until proven otherwise. Dictated by: Dictated on workstation # [id number]
== END ==
LOC: RAD 12:41
PROVIDERS: ATTEND Obstetrics & Gynecology
DX: R19.09 Other intra-abdominal and pelvic swelling, mass and lump (principal)
CPT/HCPCS: 76830; 76856

== ENCOUNTER 2020-01-07 12:30 | Outpatient (RCR) | payer OTHER ==
[~2020-01-07] VITALS: Ht 162.6 cm; Wt 93.3 kg
[2020-01-07] MEDS ORDERED: RT-ALBUINH IH (12:45)
[2020-01-07] MEDS ORDERED: FAMO-119 PO (12:46)
[2020-01-07] MEDS ORDERED: CALC-50 PO (12:46)
[2020-01-07] MEDS ORDERED: SALM1CAP4 PO (12:46)
== END 2020-01-07 16:00 | disposition home or self-care (01) ==
LOC: PREOP 12:30
PROVIDERS: ATTEND Surgery
DX: Z01.818 Encounter for other preprocedural examination (principal); K59.00 Constipation, unspecified; K21.9 Gastro-esophageal reflux disease without esophagitis; K92.1 Melena

== ENCOUNTER 2020-01-13 05:35 | Outpatient (RCR) | payer OTHER ==
[~2020-01-13] VITALS: Ht 162.6 cm; Wt 90.9 kg
[~2020-01-13 05:35] MED LIST changes: +CALC-50 PO; +FAMO-119 PO; -FOLI0.4T2 PO; +FOLI0.4T6 PO; +RT-ALBUINH IH; +SALM1CAP4 PO
[2020-01-29] MEDS ORDERED: OXC5T PO (08:35)
[2020-01-29] MEDS ORDERED: DCS100C PO (08:35)
[2020-01-29] MEDS ORDERED: IBUP-844 PO (08:35)
== END 2020-04-12 | disposition home or self-care (01) ==
LOC: PREOP 05:35
PROVIDERS: ATTEND Obstetrics & Gynecology
DX: Z01.818 Encounter for other preprocedural examination (principal)

== ENCOUNTER → 2020-01-23 | Outpatient (CLI) | payer OTHER ==
[~2020-01-23] MED LIST changes: +FOLI0.4T2 PO; -FOLI0.4T6 PO
== END ==
LOC: PREOP 15:26
PROVIDERS: ATTEND Obstetrics & Gynecology
DX: Z01.812 Encounter for preprocedural laboratory examination (principal); R19.00 Intra-abdominal and pelvic swelling, mass and lump, unspecified site

== ENCOUNTER 2020-01-27 08:05 | Day surgery (SDC) | payer OTHER ==
[2020-01-27] VITALS (12 sets, daily range): BP systolic 126–155; BP diastolic 56–77
[~2020-01-27] VITALS: Ht 162.6 cm; Wt 90.9 kg
[2020-01-27] MEDS ORDERED: CLINDAMYCIN 900 MG/50 ML IVPB 50 ML IV ONE (08:30)
[2020-01-27] MEDS: LACTATED RINGERS 1,000 ML IV PRN ×2 (08:30→14:23)
[2020-01-27] MEDS ORDERED: metroNIDAZOLE 500MG/100ML IVPB 100 ML IV ONE (08:30)
[2020-01-27 08:58] LABS: BASOPHILS % (AUTO) 1 % (0-10); EOSINOPHILS # (AUTO) 0.1 10^3/uL (0.0-0.3); EOSINOPHILS % (AUTO) 5 % (0-10); HEMATOCRIT 27 % (35-52); HEMOGLOBIN 8.4 g/dL (11.5-16.0); LYMPHOCYTES # (AUTO) 0.3 10^3/uL (1.0-4.0); LYMPHOCYTES % (AUTO) 15 % (12-44); MEAN CORPUSCULAR HEMOGLOBIN 27 pg (25-34); MEAN CORPUSCULAR HGB CONC 32 g/dL (32-36); MEAN CORPUSCULAR VOLUME 85 fL (80-99); MEAN PLATELET VOLUME 10.5 fL (9.0-12.2); MONOCYTES # (AUTO) 0.3 10^3/uL (0.0-1.0); MONOCYTES % (AUTO) 14 % (0-12); NEUTROPHILS # (AUTO) 1.3 10^3/uL (1.8-7.8); NEUTROPHILS % (AUTO) 65 % (42-75); PLATELET COUNT 81 10^3/uL (130-400)
[2020-01-27] MEDS ORDERED: CATHETER FLUSH 10 ML SYR IV PRN (09:00)
[2020-01-27 09:20] LABS: ALANINE AMINOTRANSFERASE 14 U/L (0-55); ALBUMIN 3.4 GM/DL (3.2-4.5); ALKALINE PHOSPHATASE 61 U/L (40-136); BILIRUBIN,TOTAL 0.5 MG/DL (0.1-1.0); BUN/CREATININE RATIO 20; CALCIUM 8.4 MG/DL (8.5-10.1); CARBON DIOXIDE 19 MMOL/L (21-32); CHLORIDE 110 MMOL/L (98-107); GFR ESTIMATED > 60; GLUCOSE 119 MG/DL (70-105); POTASSIUM 4.1 MMOL/L (3.6-5.0); SODIUM 138 MMOL/L (135-145); TOTAL PROTEIN 6.6 GM/DL (6.4-8.2)
[2020-01-27] MEDS ORDERED: BUPIVACAINE 0.25% 30 ML (SENSORCAINE) VIAL ONE (09:21)
[2020-01-27] MEDS ORDERED: LIDOCAINE PF 2% 5 ML (XYLOCAINE) VIAL ONE (10:17)
[2020-01-27] MEDS ORDERED: proPOfol 200 MG/20 ML (DIPRIVAN) VIAL IV ONE (10:17)
[2020-01-27] MEDS ORDERED: ROCURONIUM 10 MG/ML 5 ML SYRINGE IV ONE (10:17)
[2020-01-27] MEDS ORDERED: SEVOFLURANE (ULTANE) 15 ML INHAL SOLN ONE ×5 (10:17→11:34)
[2020-01-27] MEDS ORDERED: SUCCINYLCHOLINE INJ 100 MG/5 ML SYR/VIAL ONE (10:17)
[2020-01-27] MEDS ORDERED: fentaNYL INJECTION 100 MCG/2 ML AMP ONE (10:18)
[2020-01-27] MEDS ORDERED: MIDAZOLAM 2 MG/2 ML (VERSED) VIAL ONE (10:18)
[2020-01-27] MEDS ORDERED: KETOROLAC 30 MG/ML VIAL IVP SCH (10:30)
[2020-01-27] MEDS ORDERED: HYDROmorphone 2 MG/ML VIAL (DILAUDID) IV PRN (10:30)
[2020-01-27] MEDS ORDERED: ONDANSETRON 4 MG/2 ML (SDV) Z0FRAN IVP PRN ×3 (10:30→13:45)
[2020-01-27] MEDS: D5 LR IV SOLUTION 1,000 ML IV SCH ×2 (10:30→18:29)
[2020-01-27] MEDS ORDERED: GLYCOPYRROLATE 0.2 MG/ML (ROBINUL) 2 ML VIAL ONE ×2 (11:10→11:23)
[2020-01-27] MEDS ORDERED: NEOSTIGMINE 3 MG/3 ML VIAL ONE (11:23)
[2020-01-27] MEDS ORDERED: morphine INJ 10 MG/ML 1ML (SYR OR VIAL) ONE (12:00)
[2020-01-27] MEDS ORDERED: HYDROmorphone 2 MG/ML VIAL (DILAUDID) IV ONE (12:00)
[2020-01-27] MEDS ORDERED: morphine INJ 10 MG/ML 1ML (SYR OR VIAL) IVP ONE ×2 (12:00→13:45)
[2020-01-27] MEDS ORDERED: KETOROLAC 30 MG/ML VIAL ONE (12:00)
--- NOTE | 2020-01-27 12:50 | NUR ---
Received patient from PACU on bed. Patient accompanied via A Genaro RN and gave this nurse report. . IV infusing without diff. mina cath in placed and to DD. SCD applied and turned on. No concerns voiced via patient. Call light within reach. See nursing interventions.
[2020-01-27] MEDS ORDERED: fentaNYL INJECTION 100 MCG/2 ML AMP IVP ONE (13:45)
[2020-01-27] MEDS: KETOROLAC 30 MG/ML VIAL IVP SCH ×2 (18:27→23:58)
--- NOTE | 2020-01-27 19:15 | NUR ---
Dr Kruse here to see patient.
--- NOTE | 2020-01-27 20:18 | OPERATIVE REPORT ---
DATE OF SERVICE: PREOPERATIVE DIAGNOSIS: A 65-year-old female with pelvic mass. POSTOPERATIVE DIAGNOSIS: A 64-year-old female with pelvic mass. PROCEDURE: Exploratory laparotomy, removal of pelvic mass, partial omentectomy and pelvic washings. SURGEON: Cayden Kruse DO REINFORCING STEEL WORKER: Jaja Reynolds DNP, who was necessary for manipulation and retraction of the procedure. ANESTHESIA: General endotracheal. ESTIMATED BLOOD LOSS: Minimal. URINE OUTPUT: 250 mL clear at the end of the procedure. FLUIDS: 1650 mL of lactated Ringer's solution. FINDINGS: A large pelvic mass that appears to be originating from the right ovary. No evidence of left ovary or uterus, thickly adhesed omentum to the anterior abdominal wall. SPECIMEN SENT: Pelvic washing with ascites, omental biopsy and pelvic mass. INDICATIONS FOR PROCEDURE: A 65-year-old female patient who is consulted to me from [facility] for finding of a pelvic mass on CT. Followup ultrasound revealed the same findings were similar measurements. There was no pelvic lymphadenopathy or periaortic lymphadenopathy. Her CA-125 was negative and on the initial CT, there was no evidence of ascites. Due to the findings that were not significant or suspicious for malignancy, I discussed with the patient proceeding with this here at [facility]. Risks of procedure were discussed with the patient in detail including risk of bleeding, infection, damage to surrounding structures including, but not limited to bowel, bladder, or kidneys, possible need for reoperation, postoperative complications that may occur, risk from anesthesia including an increased risk due to her chronic hepatitis, cirrhosis. After all of her questions were answered, consent was obtained in the preoperative area and the patient was taken to the operating room. OPERATIVE REPORT IN DETAIL: Once in the operating room, anesthesia was found to be adequate. A Fragoso catheter was placed. The patient was prepped and draped in the supine position in normal sterile fashion. After which, a timeout was performed. A midline incision starting at the suprapubic bone and going around the left side of the umbilicus was made with a knife and was carried down to underlying fascia with Bovie cautery. The fascial incision was then made with a Bovie cautery and extended superiorly and inferiorly with good visualization of the underlying anatomy in the process of doing such. I then entered the peritoneum with blunt puncture of the finger and extended the peritoneal incision using gross traction. Fluid and ascites was noted at the time of entry into the peritoneum and this was collected as pelvic washings along with other pelvic washings were collected throughout the procedure, after which an Gianluca ring retractor was placed in the peritoneal incision, which offers excellent lateral sidewall retraction. The pelvic mass was easily palpated and encountered upon entry into the peritoneum. I delivered the pelvic mass through the incision. Once it was delivered through the incision, I am able to isolate its attachment point of the right infundibulopelvic ligament and its vascular pedicle. I am able to clamp this using a LigaSure Impact bipolar cauterized and sealed using the LigaSure, after which I take the dissection around its peritoneal adhesions using the Impact device and hugging the ovary and pelvic mass in this process. Once it was completely relieved of its pelvic attachments, I am able to remove the mass in its entirety. It is sent off as pelvic mass. There is no active bleeding noted from any of my dissection planes. I then copiously irrigated the pelvis using normal saline. There was no active bleeding noted from any of my dissection planes. I explored the left pelvic sidewall as the patient thought that she did have her left ovary; however, this was not present upon further investigation, I could not find it. Therefore, there are areas on the omentum that are bleeding from taking down the adhesions due to the density of the omentum and the bleeding from the omentum. I take a partial omentectomy to rule out any significant concerns or spread of cancer. This was done by taking a LigaSure device across the bleeding segment of the omentum. After which, there was no active bleeding noted from any of my myotomy either. I then removed the Gianluca ring retractor and closed the fascia, rectus muscles and peritoneum in one layer using a modified Smead-Pickard technique and a #1 looped PDS, after which the skin was reapproximated with zoë. The patient tolerated the procedure well and was taken to recovery in stable condition. Lap and sponge were correct at the end of the procedure. Instrument counts correct as well. A 900 mg of Cleocin and 500 mg of Flagyl were given preoperatively for infection prophylaxis. Job ID: [id number] DocumentID: [id number] Dictated Date: 01/27/2020 11:59:20 Dewatering Filtering Supervisor Date: 01/27/2020 20:17:49 Dictated By: DO JERAD PERERA
[2020-01-27] MEDS: DOCUSATE SODIUM 100 MG (COLACE) CAP PO SCH (21:10)
[2020-01-28] MEDS: D5 LR IV SOLUTION 1,000 ML IV SCH ×3 (02:07→18:22)
[2020-01-28 04:29] VITALS: BP 160/67
[2020-01-28 06:15] LABS: BASOPHILS % (AUTO) 0 % (0-10); EOSINOPHILS % (AUTO) 0 % (0-10); HEMATOCRIT 25 % (35-52); HEMOGLOBIN 7.7 g/dL (11.5-16.0); LYMPHOCYTES # (AUTO) 0.2 10^3/uL (1.0-4.0); LYMPHOCYTES % (AUTO) 7 % (12-44); MEAN CORPUSCULAR HEMOGLOBIN 27 pg (25-34); MEAN CORPUSCULAR HGB CONC 31 g/dL (32-36); MEAN CORPUSCULAR VOLUME 86 fL (80-99); MEAN PLATELET VOLUME 10.8 fL (9.0-12.2); MONOCYTES # (AUTO) 0.3 10^3/uL (0.0-1.0); MONOCYTES % (AUTO) 13 % (0-12); NEUTROPHILS # (AUTO) 1.8 10^3/uL (1.8-7.8); NEUTROPHILS % (AUTO) 80 % (42-75); PLATELET COUNT 66 10^3/uL (130-400); WHITE BLOOD COUNT 2.2 10^3/uL (4.3-11.0)
[2020-01-28] MEDS: KETOROLAC 30 MG/ML VIAL IVP SCH (06:41)
--- NOTE | 2020-01-28 07:31 | Progress Note ---
Standard Progress Note Progress Notes/Assess & Plan Date Seen by a Provider: Jan 28, 2020 Time Seen by a Provider: 08:15 Progress/Assessment & Plan Patinet doing well, POD 1 Ex Lap. Reports good overall pain control. Fragoso out this AM. Tolerating regular diet. Vital Sign - Last 24 Hours 01/27/20 01/27/20 01/27/20 01/27/20 08:15 11:44 11:44 11:50 Temp 36.5 36.6 Pulse 59 Resp 18 16 18 B/P (MAP) 150/77 (101) 126/66 (86) 134/67 (89) Pulse Ox 98 99 97 O2 Delivery Room Air OxyMask OxyMask OxyMask O2 Flow Rate 6 6 6 01/27/20 01/27/20 01/27/20 01/27/20 12:00 12:00 12:10 12:12 Resp 18 18 B/P (MAP) 146/67 (93) 148/70 (96) Pulse Ox 98 97 O2 Delivery OxyMask OxyMask OxyMask OxyMask O2 Flow Rate 6 6 6 6 01/27/20 01/27/20 01/27/20 01/27/20 12:19 12:20 12:29 12:30 Resp 18 18 B/P (MAP) 131/62 (85) 129/63 (85) Pulse Ox 96 97 O2 Delivery OxyMask OxyMask Nasal Cannula Nasal Cannula O2 Flow Rate 6 3 2 2 01/27/20 01/27/20 01/27/20 01/27/20 12:40 12:40 13:00 13:00 Temp 36.4 36.7 Pulse 54 Resp 18 16 B/P (MAP) 132/64 (86) 154/68 (96) Pulse Ox 97 99 99 O2 Delivery Nasal Cannula Nasal Cannula Nasal Cannula Nasal Cannula O2 Flow Rate 2 2 2.00 2.00 01/27/20 01/27/20 01/27/20 01/27/20 18:30 21:10 21:10 23:58 Temp 36.6 36.8 36.7 Pulse 54 61 56 Resp 16 16 16 B/P (MAP) 152/56 (88) 155/77 (103) 153/71 (98) Pulse Ox 99 99 99 99 O2 Delivery Nasal Cannula Nasal Cannula Nasal Cannula Nasal Cannula O2 Flow Rate 2.00 2.00 2.00 2.00 12/15/20 04:29 Temp 36.6 Pulse 52 Resp 16 B/P (MAP) 160/67 (98) Pulse Ox 99 O2 Delivery Nasal Cannula O2 Flow Rate 2.00 Intake and Output 01/27/20 01/27/20 01/28/20 15:00 23:00 07:00 Intake Total 1150 ml 1000 ml 2600 ml Output Total 325 ml 900 ml 2500 ml Balance 825 ml 100 ml 100 ml Incision: c/d/i Laboratory Tests Test 01/27/20 08:35 01/28/20 05:42 Range/Units White Blood Count 2.0 L 2.2 L 4.3-11.0 10^3/uL Red Blood Count 3.13 L 2.89 L 3.80-5.11 10^6/uL Hemoglobin 8.4 L 7.7 L 11.5-16.0 g/dL Hematocrit 27 L 25 L 35-52 % Mean Corpuscular Volume 85 86 80-99 fL Mean Corpuscular Hemoglobin 27 27 25-34 pg Mean Corpuscular Hemoglobin Concent 32 31 L 32-36 g/dL Red Cell Distribution Width 17.3 H 17.3 H 10.0-14.5 % Platelet Count 81 L 66 L 130-400 10^3/uL Mean Platelet Volume 10.5 10.8 9.0-12.2 fL Immature Granulocyte % (Auto) 1 0 % Neutrophils (%) (Auto) 65 80 H 42-75 % Lymphocytes (%) (Auto) 15 7 L 12-44 % Monocytes (%) (Auto) 14 H 13 H 0-12 % Eosinophils (%) (Auto) 5 0 0-10 % Basophils (%) (Auto) 1 0 0-10 % Neutrophils # (Auto) 1.3 L 1.8 1.8-7.8 10^3/uL Lymphocytes # (Auto) 0.3 L 0.2 L 1.0-4.0 10^3/uL Monocytes # (Auto) 0.3 0.3 0.0-1.0 10^3/uL Eosinophils # (Auto) 0.1 0.0 0.0-0.3 10^3/uL Basophils # (Auto) 0.0 0.0 0.0-0.1 10^3/uL Immature Granulocyte # (Auto) 0.0 0.0 0.0-0.1 10^3/uL Sodium Level 138 135-145 MMOL/L Potassium Level 4.1 3.6-5.0 MMOL/L Chloride Level 110 H 98-107 MMOL/L Carbon Dioxide Level 19 L 21-32 MMOL/L Anion Gap 9 5-14 MMOL/L Blood Urea Nitrogen 14 7-18 MG/DL Creatinine 0.70 0.60-1.30 MG/DL Estimat Glomerular Filtration Rate > 60 BUN/Creatinine Ratio 20 Glucose Level 119 H 70-105 MG/DL Calcium Level 8.4 L 8.5-10.1 MG/DL Corrected Calcium 8.9 8.5-10.1 MG/DL Total Bilirubin 0.5 0.1-1.0 MG/DL Aspartate Amino Transf (AST/SGOT) 20 5-34 U/L Alanine Aminotransferase (ALT/SGPT) 14 0-55 U/L Alkaline Phosphatase 61 40-136 U/L Total Protein 6.6 6.4-8.2 GM/DL Albumin 3.4 3.2-4.5 GM/DL DIagnosisi: POD 1 Ex Lap removal pelvic mass P: Continue to encourage ambulation. IS use Anticipate discharge tomorrow HETAL MANDUJANO DO Jan 28, 2020 07:31
[2020-01-28] MEDS: DOCUSATE SODIUM 100 MG (COLACE) CAP PO SCH ×2 (08:33→20:40)
[2020-01-28] MEDS: ESTRADIOL 1 MG TAB (ESTRACE) PO SCH (08:33)
[2020-01-28 08:35] VITALS: BP 139/67
--- NOTE | 2020-01-28 08:45 | NUR ---
DR. MANDUJANO TO PT'S BEDSIDE. POC REVIEWED WITH PT, PT VERBALIZES UNDERSTANDING. NO NEEDS VOICED AT THIS TIME. CALL LIGHT WITHIN REACH.
[2020-01-28] MEDS ORDERED: DOCUSATE SODIUM 100 MG (COLACE) CAP PO SCH (09:00)
[2020-01-28] MEDS ORDERED: ATENOLOL 50 MG (TENORMIN) TAB PO SCH (09:00)
[2020-01-28] MEDS ORDERED: IBUPROFEN 800 MG (MOTRIN) TAB PO SCH (10:30)
--- NOTE | 2020-01-28 10:30 | NUR ---
PT UP TO THE BATHROOM WITH STAND BY ASSIST X1. + VOID NOTED. PT UP TO CHAIR. CALL LIGHT WITHIN REACH.
[2020-01-28] MEDS ORDERED: IBUPROFEN 600 MG (MOTRIN) TAB PO ONE (12:24)
[2020-01-28 12:43] VITALS: BP 132/63
[2020-01-28] MEDS ORDERED: IBUPROFEN 600 MG (MOTRIN) TAB PO SCH (13:00)
--- NOTE | 2020-01-28 14:00 | Anesthesia-General Post-Op ---
General Patient Condition Mental Status/LOC: Same as Preop Cardiovascular: Satisfactory Nausea/Vomiting: Absent Respiratory: Satisfactory Pain: Controlled Complications: Absent Post Op Complications Complications None Follow Up Care/Instructions Patient Instructions None needed. Anesthesia/Patient Condition Patient Condition Patient was seen this morning and she was doing well, no complaints, stable vital signs, no apparent adverse anesthesia problems. LISA REYES DO Jan 28, 2020 14:00
[2020-01-28 16:30] VITALS: BP 158/74
[2020-01-28] MEDS: IBUPROFEN 600 MG (MOTRIN) TAB PO SCH (18:22)
[2020-01-28 20:40] VITALS: BP 155/67
[2020-01-29 02:05] VITALS: BP 160/75
[2020-01-29] MEDS: IBUPROFEN 600 MG (MOTRIN) TAB PO SCH ×2 (02:05→08:01)
[2020-01-29 07:58] VITALS: BP 137/66
--- NOTE | 2020-01-29 08:34 | Discharge Inst-Women's Service ---
Discharge Inst-Women's Serv Depart Medication/Instructions New, Converted or Re-Newed RX: RX on Chart Final Diagnosis POD 2 Laparotomy removal pelvic mass Problems Reviewed?: Yes Consults/Follow Up Additional Follow Up: Yes Orders/Referrals Dr. Kruse in 7-10 days for staple removal Activity Activity: Activity as Tolerated Driving Instructions: No Driving for 1 Week NO SMOKING: NO SMOKING Nothing Inside Vagina: No Douching, No [place], No Tampons Diet Discharge Diet: No Restrictions Symptoms to Report to : Bleeding Excessive, Pain Increased, Fever Over 101 Degrees F, Vaginal Bleeding Increase, Questions/Concerns For Any Problems or Questions: Contact Your Physician Skin/Wound Care Infection Signs and Symptoms: Increased Redness, Foul Odor of Wound, Increased Drainage, Skin Itchy or Has a Rash, Increased Swelling, Temperature Above 101 F Operative Area Clean and Dry: Keep Incision Clean/Dry Stitches/Clark/Dermabond: Dermabond, Care of Clark Bathing Instructions: HETAL Huynh DO Jan 29, 2020 08:34
[2020-01-29] MEDS ORDERED: OXC5T PO (08:35)
[2020-01-29] MEDS ORDERED: DCS100C PO (08:35)
[2020-01-29] MEDS ORDERED: IBUP-844 PO (08:35)
[2020-01-29] MEDS: DOCUSATE SODIUM 100 MG (COLACE) CAP PO SCH (10:35)
--- NOTE | 2020-01-29 10:40 | NUR ---
IV removed. Tip intact.
--- NOTE | 2020-01-29 10:45 | NUR ---
Discharge instructions given to patient. PHS and appointment card given to patient. Patient verbalizes understanding. Instructions on incision care given to pt, pt verbalizes understanding. Pt signs that discharge instructions were given to pt. No further needs at this time. Pt waiting for ride to discharge.
[2020-01-29] MEDS: ESTRADIOL 1 MG TAB (ESTRACE) PO SCH (11:00)
--- NOTE | 2020-01-29 13:00 | NUR ---
Pt discharged from unit in stable condition via wheel chair accompanied by this RN. Pts belongings in hands.
== END 2020-01-29 13:00 ==
LOC: SDC 08:05 → WS 13:25 → SDC 01-29 13:00
PROVIDERS: ATTEND Obstetrics & Gynecology
DX: R19.00 Intra-abdominal and pelvic swelling, mass and lump, unspecified site (principal); I10 Essential (primary) hypertension; D64.9 Anemia, unspecified; J45.909 Unspecified asthma, uncomplicated; F32.9 Major depressive disorder, single episode, unspecified; K21.9 Gastro-esophageal reflux disease without esophagitis; M19.90 Unspecified osteoarthritis, unspecified site; Z79.51 Long term (current) use of inhaled steroids; Z79.899 Other long term (current) drug therapy; Z88.1 Allergy status to other antibiotic agents; Z90.710 Acquired absence of both cervix and uterus; Z80.9 Family history of malignant neoplasm, unspecified; Z83.3 Family history of diabetes mellitus
CPT/HCPCS: 49000; 49255; 80053; 85025; 86850; 86900; 86901; 87081; 88112; 88305; U0002; 36415; 87635; 88307

== ENCOUNTER → 2020-06-24 | Outpatient (CLI) | payer OTHER ==
[~2020-06-24] MED LIST changes: -ACYC400T PO; +ACYC400T21 PO; +DCS100C PO; -FOLI0.4T2 PO; +FOLI0.4T6 PO; +IBUP-844 PO; +OXC5T PO
--- NOTE | 2020-06-24 17:07 | Diagnostic Imaging Report ---
EXAMINATION: CT abdomen with and without intravenous contrast. TECHNIQUE: Precontrast acquisitions were acquired through the abdomen . Multiple contiguous axial images were obtained through the abdomen after the administration of intravenous contrast. All CT scans use one or more of the following dose optimizing techniques: automated exposure control, MA and/or KvP adjustment based on patient size and exam type or iterative reconstruction. HISTORY: Hepatitis C COMPARISON: 12/06/2019 FINDINGS: Limited views of the lower thorax are unremarkable. Liver is cirrhotic. No arterially enhancing lesions are seen. No areas of washout. 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 There is nonocclusive thrombus at the portal splenic confluence. This is unchanged from prior exam. There is no biliary ductal dilation. Gallbladder is normal. Pancreas is normal. Spleen is moderately enlarged. Adrenal glands are normal. The kidneys are normal. There is no hydronephrosis. Visualized bowel is normal in caliber without obstruction or inflammation. Fat-containing ventral hernia is present. There is a moderate amount of ascites. No free air. No abdominal lymphadenopathy. Aorta is normal in caliber without aneurysm. There are no suspicious osseus lesions. IMPRESSION: 1. Cirrhotic liver without suspicious arterial lesions. 2. Sequelae of portal hypertension including large paraesophageal varices, ascites, splenomegaly and nonocclusive thrombus at the portosplenic confluence. Dictated by: Dictated on workstation # [id number]
== END ==
LOC: RAD 15:50
PROVIDERS: ATTEND Pediatrics
DX: B18.2 Chronic viral hepatitis C (principal); K74.60 Unspecified cirrhosis of liver; K76.6 Portal hypertension; R16.1 Splenomegaly, not elsewhere classified; R18.8 Other ascites; I85.10 Secondary esophageal varices without bleeding
CPT/HCPCS: 74170

== ENCOUNTER → 2020-07-21 | Outpatient (CLI) | payer OTHER ==
--- NOTE | 2020-07-21 11:08 | Diagnostic Imaging Report ---
INDICATION: Screening for osteoporosis. COMPARISON: None FINDINGS: The bone mineral density of the spine, the hips and the femoral necks was measured. There are no prior studies available for comparison. The total T score for the spine is 0.5. The total T score for the left hip is 0.7 and for the right hip 0.3. The T score for the left femoral neck is 0.0 and for the right femoral neck -0.6. All of these values are within normal limits. AP Spine L1-L4: [BMD (g/cm2): 1.259] [T-Score: 0.5] [Z-Score: 1.1] [BMD Previous: NA] [BMD % Change: NA] LT Hip Neck: [BMD (g/cm2): 1.033] [T-Score: 0.0] [Z-Score: 0.8] LT Hip Total: [BMD (g/cm2):1.091] [T-Score:0.7] [Z-Score: 1.2] [BMD Previous: NA] [BMD % Change: NA] RT Hip Neck: [BMD (g/cm2):0.961] [T-Score:-0.6] [Z-Score:0.3] RT Hip Total: [BMD (g/cm2):1.046] [T-score:0.3] [Z-Score:0.8] [BMD Previous:NA] [BMD % Change:NA] *Indicates significant change from prior examination based on 95% confidence level. World Health Organization criteria for BMD interpretation classify patients as Normal (T-score at or above -1.0), Osteopenic (T-score between -1.0 and -2.5) or Osteoporotic (T-score at or below -2.5). LIMITATIONS AND MODIFICATION: None. FRACTURE RISK (FRAX SCORE): The ten year probability of (%): Major Osteoporotic Fracture: [NA] Hip Fracture: [NA] IMPRESSION: 1. The bone mineral density of the spine, the hips and the femoral necks is within normal limits. 2. 3. See below National Osteoporosis Foundation guidelines on when to potentially initiate pharmacologic therapy. Based on the National Osteoporosis Foundation Guidelines, pharmacologic treatment should be initiated in any of the following, unless clinical conditions suggest otherwise: * Any patient with prior fragility fracture of the hip or vertebrae. A spine fracture indicates 5X risk for subsequent spine fracture and 2X risk for subsequent hip fracture. * Osteoporosis (T-score <-2.5). * Postmenopausal women and men age 50 and older with low bone mass/osteopenia (T-score between -1.0 and -2.5) by DXA and 10-year major osteoporotic fracture greater than 20% or a 10-year probability of hip fracture greater than 3%. These fracture risks are supplied above in the FRAX score, if applicable. * Clinician judgement and/or patient preferences may indicate treatment for people with 10-year fracture probabilities above or below these levels. Dictated by: Dictated on workstation # [id number]
== END ==
LOC: RAD 09:00
PROVIDERS: ATTEND Internal Medicine Gastroenterology
DX: Z13.820 Encounter for screening for osteoporosis (principal); B18.2 Chronic viral hepatitis C; K74.60 Unspecified cirrhosis of liver
CPT/HCPCS: 77080

== ENCOUNTER → 2021-03-09 | Outpatient (CLI) | payer OTHER ==
[~2021-03-09] MED LIST changes: -DCS100C PO; +DOCU-239 PO; -FLUO20CA46 PO; +FLUO20CA48 PO
--- NOTE | 2021-03-09 17:23 | Diagnostic Imaging Report ---
INDICATION: Routine screening. No prior mammograms are available for comparison. 2-D and 3-D bilateral screening mammography was performed with CAD. Scattered fibroglandular densities are identified bilaterally. There are benign calcifications scattered throughout both breasts. No mass or malignant-appearing microcalcifications are seen. Axillae are unremarkable. IMPRESSION: BI-RADS Category 2 No mammographic features suspicious for malignancy are identified. ACR BI-RADS Category 2: Benign findings. Result letter will be mailed to the patient. Note: At least 10% of breast cancer is not imaged by mammography. Dictated by: Dictated on workstation # [id number]
== END ==
LOC: RAD 13:15
PROVIDERS: ATTEND Obstetrics & Gynecology
DX: Z12.31 Encounter for screening mammogram for malignant neoplasm of breast (principal)
CPT/HCPCS: 77063; 77067